=== PATIENT | male | born 1955 | race Caucasian/White ===

== ENCOUNTER 2022-07-16 09:26 | Outpatient (CLI) | payer MEDICARE, SELFPAY | END 2022-07-16 09:27 | disposition home or self-care (01) | PROVIDERS: PCP Family Medicine; Visit Provider Surgery | DX: K42.9 Umbilical hernia without obstruction or gangrene (principal); Z01.818 Encounter for other preprocedural examination | CPT/HCPCS: 36415; 86850; 86900; 86901 ==

== ENCOUNTER 2022-07-22 01:14 | Day surgery (SDC) | payer MEDICARE, SELFPAY ==
[2022-07-13 11:17] VITALS: BMI 28.9
--- NOTE | 2022-07-13 11:28 | PC.NURSE ---
PRE-OP INSTRUCTIONS, PLEASE READ CAREFULLY Report to the Outpatient Waiting Room, entrance under the green pavilion located off [facility], at time _0900_ on date _07/22/22_. Planned Procedure Time: _1200_. Time changes happen often and if your time is changed the preop area will call you the afternoon before. - You and your visitor will be asked to self-screen and do not enter if you have any COVID symptoms. - A mask is optional within the hospital at this time. Patients may have clear liquids (water, carbonated beverages, clear teas, apple juice) until 3 hours prior to surgery with a maximum of 20 ounces. - No food from midnight until time of surgery Take the following medications with a SIP of water the morning of surgery: _CARBIDOPA-LEVODOPA, ALBUTEROL INHALER IF NEEDED_ DO NOT STOP ANY OF YOUR OTHER PRESCRIPTION MEDICATIONS PRIOR TO SURGERY ?EXCEPT THE FOLLOWING Medications per DR. ZUNIGA - _STARTING 07/14/22 DECREASE ASPIRIN TO 81MG_ Please no make-up, nail welsh, hairspray, perfume, deodorant, or body powder the day of surgery. No jewelry (including any body piercings) or valuables the day of surgery, leave them at home. Please take a shower or bath the night before, or the morning of, surgery with an antibacterial soap. Wear comfortable, loose fitting clothing. - Jewelry must be removed prior to entering the operating room. Rings and piercings that are not removed may be cut off. - The hospital will not accept responsibility for valuables. - Please leave all valuables, including medications, at home the day of surgery. If you are going home after surgery, a licensed long haul truck driver must drive you home. - NO public transportation without another adult if you receive anesthesia. - We recommend that an adult stay with you for 24 hours following discharge. - We also recommend that you do not drive, make important decision, drink alcoholic beverages, or take any drugs that were not prescribed by your health care provider for at least 24 hours after your discharge time. Follow any additional instructions given to you from your surgeon. HIBICLENS SHOWER AM OF SURGERY If you or anyone in your household have experienced Covid symptoms in the past week, please notify your surgeon or the nurse liaison at the phone number below for possible testing. Telephone instructions given to _PATIENT_and asked if any additional questions and then verbalized understanding. Patient advised to call surgeon office or pre surgery nurse liaison [phone] if any additional questions.
[2022-07-22] VITALS (17 sets, daily range): BP systolic 125–156; BP diastolic 63–97; PULSE 58–78; RESP 9–20; TEMP 36.3–37.1; O2SAT 92–100; BMI 28.3
[2022-07-22] MEDS: LACTATED RINGERS 1,000 ML 30 ML IV CONT ×2 (10:35→14:04)
--- NOTE | 2022-07-22 10:48 | WPDANESEPPF ---
Anes - Initial Pre Proc Eval Procedure: Operation Date: 07/22/22 12:00 Proposed Procedures p Robotic Assisted Umbilical Hernia Repair with Mesh - Patti Ramires MD Date/Time: 07/22/22 10:48 Surgeon: Patti Ramires MD Pre Op Diagnosis: umbilical hernia Patient Data Age: 66 Gender: M Height: 1.73 m Weight: 86.36 kg Allergies Allergy/AdvReac Type Severity Reaction Status Date / Time ibuprofen Allergy Unknown FACIAL Verified 07/22/22 10:20 Swelling Home Medications Medication Instructions Recorded Confirmed Type carbidopa 25 mg-levodopa 100 mg 2 tablet PO QID 03/05/22 07/13/22 History tablet albuterol sulfate 90 mcg/actuation 2 puff inhalation Q4-6H PRN 07/05/22 07/13/22 Rx aerosol inhaler (ProAir HFA) shortness of breath or wheezing #6.7 grams fluticasone propionate 50 1 spray intranasal DAILY 07/05/22 07/13/22 History mcg/actuation nasal spray,suspension (Flonase Allergy Relief) aspirin 325 mg capsule 650 mg PO DAILY 07/13/22 07/13/22 History fluticasone furoate 200 1 inh inhalation HS 07/13/22 07/13/22 History mcg-vilanterol 25 mcg/dose inhalation powder (Breo Ellipta) Patient hx anesthesia problems: none Family hx anesthesia problems: none Results Review: All pre-operative results and documents have been reviewed as part of the pre-operative evaluation. [facility] Past Medical History Medical History BMI 28.0-28.9,adult BMI greater than 30 Mild intermittent asthma with status asthmaticus Mixed hyperlipidemia Parkinsons Screen for colon cancer Screening for prostate cancer Type 2 diabetes mellitus without complication Surgical History Surgical History H/O left inguinal hernia repair History of nasal polypectomy Family History Family History Father Cerebrovascular accident Malignant neoplasm of prostate Mother Cerebrovascular accident Sibling Cerebrovascular accident Acute myocardial infarction Other Family history of allergic disorder Hypertension Social History Social History Smoking status: Never smoker Second hand tobacco smoke exposure: No Alcohol intake: never Substance use: never Lack of Transportation: No Lack of Food: Never True Current Housing: I Have Housing Concerned About Future Housing: No Difficulty Paying Gas/Electric Bills: No Difficulty Paying for Meds: No Currently Unemployed: No Education: Bachelor's Degree Difficulty w/ Childcare or Family Care: No Living arrangements: with family Additional living arrangements comments: LIVES WITH SPOUSE (OBIE) & DAUGHTER ANN Occupation/Education: retired Spiritual care concerns: No Anes - Eval Final PreProcedure Day of Procedure 07/22/22 10:48 Patient weight: overweight Heart: regular rate and rhythm Lungs: clear to auscultation Airway: Mallampati scale class II Neurological: alert and oriented Last oral intake: >/= 8 hours ASA classification: III Emergent: no Anesthetic plan: proceed Anesthesia type and monitoring: general ETT and standard monitoring Results Review: All pre-operative results and documents have been reviewed as part of the pre-operative evaluation. Informed Consent: The patient's anesthetic plan and its attendant risks and benefits were discussed with the patient/family/POA. Questions were solicited and answers provided to the satisfaction of the patient/family/POA.
[2022-07-22] MEDS: ACETAMINOPHEN 500 MG TABLET 1000 MG PO (10:50)
--- NOTE | 2022-07-22 12:04 | WPDHPUPDATE1 ---
History and Physical Update Update Date/Time: 07/22/22 12:04 History and Physical has been reviewed, including an updated exam of the patient. There are NO changes in the patient's condition. Risks, benefits, and alternatives have been discussed and questions answered. Patient agrees to proceed with procedure.
[2022-07-22] MEDS: ceFAZolin 2 GM/D5W 50 ML 2 GM/50 ML BAG IVPB (12:10)
[2022-07-22] MEDS: BUPIVACAINE/EPINEPHRINE 0.5% 50 ML VIAL 30 ML INFILTRATE (12:53)
--- NOTE | 2022-07-22 14:19 | P.OP_ITS ---
Procedure Note - Detailed Date of Procedure 07/22/22 Pre-op Diagnosis umbilical hernia measuring 3 cm Post-op Diagnosis Same Procedure Performed Robotic assisted repair umbilical hernia with mesh Surgeon Patti Ramires MD Anesthesia General Indications 66 y/o M presenting c moderate sized symptomatic umbilical hernia Findings 3 cm umbilical hernia c incarcerated preperitoneal fat Description of Procedure The patient was taken the operating room placed in the supine position. After adequate induction of general anesthesia, the patient was prepped and draped in normal sterile fashion. A time-out was then done to verify the patient's identity as well as the procedure being performed. I began by making a 8 mm incision in the left upper quadrant. Through this, a Veress needle was placed into the peritoneal cavity and CO2 gas was insufflated. After adequate pneumoperitoneum was achieved, a 8 mm optiview trocar was placed through this incision. I then placed the laparoscope through this trocar site and under direct visualization I placed a 8 mm port in the left mid abdomen as well as an additional 8 mm port in the left lower abdomen. The robot was then docked to the 3 port sites. I then went to the robotic console. I began by identifying the hernia. A moderate-sized incarcerated umbilical hernia was noted. I created a preperitoneal flap approximately 6 cm lateral to the hernia. This f lap was carried widely superior and inferior to the defect. I then was able to reduce this hernia. The hernia was noted to contain a large amount of preperitoneal fat. Once reduced, I also reduced and dissected out the hernia sac. I then carried the flap distally past the hernia. I then closed the approximately 3 cm defect with 0 strata fix suture. I then placed a 15 x 10 cm Bard soft mesh into the abdominal cavity. The positional stitch was placed in the middle of the mesh and brought up centering the mesh over the defect. Once this was done, I used 2 O vicryl suture in the 4 cardinal directions in interrupted fashion to suture the mesh to the abdominal wall. Once the mesh was sutured in, I was happy with our tension-free repair. The mesh was noted to have good overlap of the defect. I then closed the flap with 2 0 V lock. At this point, the robot was undocked and all ports were removed. All port sites were then closed with 4 O Monocryl subcuticular suture. The patient tolerated the procedure well, is extubated in the operating room postoperative, and will be transferred to the recovery room in stable condition. Implants 15 x 10 cm Bard soft mesh Estimated Blood Loss 10 Drains No Packing No Pathology None sent Complications No immediate complications Condition Stable Disposition PACU [facility] Billing Surgery - Charge Forward: Surgery Billing
[2022-07-22] MEDS: fentaNYL CITRATE INJ (*CRX) 100 MCG/2 ML VIAL 25 MCG IV PUSH ×4 (14:28→14:52)
[2022-07-22] MEDS: HYDROmorphone HCL INJ (*CRX) 1 MG/ML SYR 0.25 MG IV PUSH ×2 (15:06→15:15)
[2022-07-22] MEDS: oxyCODONE HCL (*CRX) 5 MG TAB IR PO (15:35)
--- NOTE | 2022-07-22 16:24 | SUR.PHASEII ---
1620 - pt states that he is not able to go home . c/o abdominal pain but remains drowsy and sleeping in intervals. VSS. Dr. Ramires called and aware of concerns. pt to be admitted for pain control.
[2022-07-22] MEDS: LACTATED RINGERS 1,000 ML 100 ML IV CONT (17:16)
--- NOTE | 2022-07-22 17:21 | ADMGEN ---
This patient, Tico Rondon, was admitted to [facility] Surg Room 312-01. Patient/family oriented to hospital policies and general routines including ID bracelet, bed and alarms, visiting hours, pain management, procedures, bathroom and other care routines, personal items, smoking policy, room service/diet, and visiting hours. Information on how to activate the Rapid Response Team has been discussed. Patient/Family are encouraged to report perceived risks to care and to ask questions if they do not understand what they are told or what they should do.
[2022-07-22] MEDS: HYDROcodone/acetaminophen (*CRX) 5-325 MG TABLET 2 TAB PO (17:30)
[2022-07-22] MEDS: CARBIDOPA/LEVODOPA 25/100 MG TABLET 2 TABLET PO ×2 (17:31→20:09)
[2022-07-22] MEDS: MORPHINE SULFATE (*CRX) 4 MG/ML INJ IV PUSH (20:21)
--- NOTE | 2022-07-22 20:30 | PC.NURSE ---
pt requesting asthma meds be restarted.
[2022-07-22] MEDS: FLUTICASONE/SALMETEROL 230-21 MCG INHALER 1 PUFF 2 PUFF INHALATION (22:15)
[2022-07-22] MEDS: ALBUTEROL SULFATE (*SP) AEROSOL 1 PUFF 2 PUFF INHALATION (22:18)
[2022-07-23] MEDS: HYDROcodone/acetaminophen (*CRX) 5-325 MG TABLET 2 TAB PO ×2 (01:16→05:36)
--- NOTE | 2022-07-23 01:20 | PC.NURSE ---
bladder scanned pt d/t no void this shift, 578 ml, pt up to restroom x sba moderate unmeasured void. continue to monitor for urinary retention post surgery.
[2022-07-23 02:14] VITALS: BP 112/78; PULSE 73; RESP 12; TEMP 36.3; O2SAT 95
[2022-07-23 06:09] VITALS: BP 133/70; PULSE 70; RESP 13; TEMP 36.4; O2SAT 96
[2022-07-23 06:44] LABS: Hematocrit 43.2 % (42.0-52.0); Hemoglobin 14.3 g/dL (14.0-18.0); Mean Corpuscular HGB Conc 33.1 g/dl (32-36); Mean Corpuscular Hemoglobin 31.1 pg (26-34); Mean Corpuscular Volume 93.9 fl (80-100); Mean Platelet Volume 10.5 fl (7.4-10.4); Platelet Count Result 202 k/mm3 (150-375); Red Cell Distribution Width 13.2 % (11.5-14.5); White Blood Count 11.9 K/mm3 (4.5-10.0)
[2022-07-23 06:46] LABS: Anion Gap 6 mmol/L (8-16); Blood Urea Nitrogen 16 mg/dL (9-20); Calcium 8.9 mg/dL (8.4-10.2); Carbon Dioxide 28 mmol/L (22-30); Chloride 103 mmol/L (98-107); Estimated CRCL calculation 75 ml/min; Estimated Glomerular Filt Rate > 60; Glucose 115 mg/dL (65-110); Potassium 4.3 mmol/L (3.4-5.0); Sodium 137 mmol/L (137-145)
[2022-07-23 07:51] VITALS: O2SAT 96
[2022-07-23] MEDS: FLUTICASONE/SALMETEROL 230-21 MCG INHALER 1 PUFF 2 PUFF INHALATION (07:51)
[2022-07-23] MEDS: CARBIDOPA/LEVODOPA 25/100 MG TABLET 2 TABLET PO (08:18)
[2022-07-23] MEDS: ENOXAPARIN 40 MG/0.4 ML SYRINGE SUB-Q (08:18)
[2022-07-23] MEDS: FLUTICASONE PROPIONATE 0.05% NA SPR 16 GM BTL (*BKC) 2 SPRAY NASAL (08:19)
[2022-07-23] MEDS: HYDROcodone/acetaminophen (*CRX) 5-325 MG TABLET 1 TAB PO (09:34)
[2022-07-23 10:21] VITALS: BP 150/83; PULSE 63; RESP 13; TEMP 36; O2SAT 99
== END 2022-07-23 11:30 | disposition home or self-care (01) ==
LOC: ANHSURGERY 14:19 → ANH3MEDSUR 17:02
PROVIDERS: PCP Family Medicine; Visit Provider Surgery
PROC: (CPT 49594; principal; 2022-07-22 12:00)
DX: K42.0 Umbilical hernia with obstruction, without gangrene (principal); J45.22 Mild intermittent asthma with status asthmaticus; E11.9 Type 2 diabetes mellitus without complications; G20 Parkinson's disease; E78.2 Mixed hyperlipidemia; Z79.51 Long term (current) use of inhaled steroids; Z79.82 Long term (current) use of aspirin
CPT/HCPCS: 49594; S2900; 36415; 80048; 85027; 86850; 86900; 86901; 94640; A9270; C1781; J0690; J1100; J1170; J1650; J2250; J2270; J2405; J2704; J2710; J3010; J7120

== ENCOUNTER 2022-07-29 14:30 | Outpatient (CLI) | payer MEDICARE, SELFPAY ==
--- NOTE | ~2022-07-29 | US_ITS ---
EXAMINATION: US venous doppler [facility] DATE: 07/29/2022 15:04 INDICATION: Bilateral lower limb swelling TECHNIQUE: Rowan scale images without and with compression and Doppler images of the bilateral lower e xtremity veins were obtained. COMPARISON: None FINDINGS: The right common femoral vein, profunda femoral vein, femoral vein, popliteal vein, peroneal trunk, p osterior tibial veins, and greater saphenous vein are patent. The left common femoral vein, profunda femoral vein, femoral vein, popliteal vein, peroneal trunk, po sterior tibial veins, and greater saphenous vein are patent. IMPRESSION: 1. Patent bilateral lower extremity veins. No evidence of deep venous thrombosis. Reviewed, dictated and finalized at location F. IMPRESSION: 1. Patent bilateral lower extremity veins. No evidence of deep venous thrombosi s.
== END 2022-07-29 14:31 | disposition home or self-care (01) ==
PROVIDERS: PCP Family Medicine; Visit Provider Surgery
DX: R60.0 Localized edema (principal)
CPT/HCPCS: 93970

== ENCOUNTER 2022-10-18 07:24 | Outpatient (CLI) | payer MEDICARE, SELFPAY ==
--- NOTE | 2022-10-18 07:39 | ECHO_ITS ---
Patient Info Name: Tico Rondon Age: 67 years : 1955 Gender: Male Ht: 68 in Wt: 200 lbs BSA: 2.11 m2 HR: 68 bpm BP: 149 / 86 mmHg Technical Quality: Good Exam Date: 10/18/2022 7:45 AM Exam Location: [facility] Pulmonary Patient Status: Outpatient Admit Date: 10/18/2022 Staff Ordering Physician: Andreas Flores NP Septic Technician: Chiara Zuluaga RDCS Attending Provider: Andreas Flores NP Referring Physician: Mark ROY; Exam Type: CA echo doppler color flow Study Info Indications R60.0 - Localized edema Complete two-dimensional, color flow and Doppler transthoracic echocardiogram is performed. Summary 1. Complete two-dimensional, color flow and Doppler transthoracic echocardiogram is performed. 2. Left ventricular chamber dimension is normal. 3. Left ventricular systolic function is normal, estimated at 55-60%. 4. The left ventricular diastolic function is abnormal. 5. E/e' 10 is mildly elevated. 6. Left atrial chamber dimension is severely enlarged. 7. There is mild aortic valve sclerosis. 8. There is mild mitral valve regurgitation. 9. There is trace tricuspid valve regurgitation. 10. Moderate pulmonary hypertension, estimated pulmonary arterial systolic pressure is 50 mmHg. 11. Dilated inferior vena cava with >50% collapse upon inspiration consistent with elevated right atrial pressure, 10 mmHg. Left Ventricle E/e' 10 is mildly elevated. Left ventricular chamber dimension is normal. Left ventricular systolic function is normal, estimated at 55-60%. The left ventricular diastolic function is abnormal. Right Ventricle Right ventricular systolic function is normal and with normal TAPSE 2.8 cm. Right ventricular chamber dimension is normal. Left Atria Left atrial chamber dimension is severely enlarged. Right Atria Right atrial chamber dimension is normal. Aortic Valve The aortic valve is trileaflet. There is mild aortic valve sclerosis. There is no aortic valve stenosis. There is no aortic valve regurgitation. Pulmonic Valve There is no pulmonic regurgitation. Mitral Valve There is no mitral valve stenosis. There is mild mitral valve regurgitation. Tricuspid Valve There is trace tricuspid valve regurgitation. Moderate pulmonary hypertension, estimated pulmonary arterial systolic pressure is 50 mmHg. Pericardium/Pleural There is no pericardial effusion. Inferior Vena Cava Dilated inferior vena cava with >50% collapse upon inspiration consistent with elevated right atrial pressure, 10 mmHg. Aorta The aortic root size at the sinus of Valsalva is normal. Left Ventricular Outflow Tract Name Value Normal LVOT 2D LVOT Diameter 2.0 cm LVOT Doppler LVOT Peak Gradient 5 mmHg LVOT Mean Gradient 3 mmHg LVOT VTI 29 cm LVOT VTI/AV VTI Ratio 1.1 LVOT Stroke Volume 89 ml LVOT CO 6.0 l/min LVOT CI 2.8 l/min/m2 Pulmonic Valve Name Value Normal
== END 2022-10-18 07:25 | disposition home or self-care (01) ==
PROVIDERS: PCP Family Medicine; Visit Provider Nurse Practitioner Family
DX: R60.0 Localized edema (principal); R06.02 Shortness of breath; R79.89 Other specified abnormal findings of blood chemistry; I08.3 Combined rheumatic disorders of mitral, aortic and tricuspid valves
CPT/HCPCS: 93306

== ENCOUNTER 2022-12-08 18:16 | Emergency (ER) | payer MEDICARE, SELFPAY ==
[2022-12-08 18:25] VITALS: BP 126/76; PULSE 88; RESP 16; TEMP 37.2; O2SAT 99
--- NOTE | 2022-12-08 18:28 | ED.WOUNDLAC ---
HPI - Wound/Laceration General Chief Complaint: Wound/Laceration Stated Complaint: Wounds Thighs/Legs/Feet Time Seen by Provider: 12/08/22 18:28 Source: patient, RN notes reviewed and old records reviewed Mode of arrival: ambulatory Limitations: no limitations History of Present Illness HPI narrative: 67-year-old male with history of Parkinson's and diabetes presents for 1 month of bilateral increasing swelling, redness, blisters and open wounds that have been draining. 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 Patient states that his and daughter made him come because of wounds just keeps getting worse. Has not followed up with primary care provider Onset (ago): month(s) (1) Related Data Home Medications Medication Instructions Recorded Confirmed carbidopa 25 mg-levodopa 100 mg 2 tablet PO QID 03/05/22 12/08/22 tablet fluticasone propionate 50 1 spray intranasal DAILY 07/05/22 12/08/22 mcg/actuation nasal spray,suspension (Flonase Allergy Relief) fluticasone furoate 200 1 inh inhalation HS 07/13/22 12/08/22 mcg-vilanterol 25 mcg/dose inhalation powder (Breo Ellipta) Allergies Allergy/AdvReac Type Severity Reaction Status Date / Time ibuprofen Allergy Unknown FACIAL Verified 12/08/22 18:25 Swelling Review of Systems Review of Systems: All systems reviewed & are unremarkable except as noted in HPI and below Constitutional: Constitutional: Reports no additional constitutional complaints Eyes: Eyes: Reports no additional eye complaints ENT: Reports system reviewed and no additional complaints, except as documented Cardiovascular: Cardiovascular: Reports no additional cardiovascular complaints, Denies chest pain and Denies dyspnea Respiratory: Respiratory: Reports no additional respiratory complaints, Denies chest congestion, Denies cough and Denies dyspnea Gastrointestinal: Gastrointestinal: Reports no additional gastrointestinal complaints, Denies abdominal pain, Denies nausea and Denies vomiting Musculoskeletal: Musculoskeletal: Reports as per HPI Integumentary/Breasts: Skin/Breast: Reports as per HPI Neurologic: Reports system reviewed and no additional complaints, except as documented Psychiatric: Psychiatric: Reports no additional psychiatric complaints Allergic/Immunologic: Allergic/Immunologic: Reports no additional allergic/immunologic complaints PMFSH Past Medical History Medical History BMI 28.0-28.9,adult BMI 29.0-29.9,adult BMI greater than 30 Mild intermittent asthma with status asthmaticus Mixed hyperlipidemia Parkinsons Screen for colon cancer Screening for prostate cancer Type 2 diabetes mellitus without complication Surgical History Surgical History H/O left inguinal hernia repair History of nasal polypectomy History of umbilical hernia repair 07/22/2022 - Robotic assisted repair umbilical hernia with mesh Family History Family History Father Cerebrovascular accident Malignant neoplasm of prostate Mother Cerebrovascular accident Sibling Cerebrovascular accident Acute myocardial infarction Other Family history of allergic disorder Hypertension Social History Social History Smoking status: Never smoker Second hand tobacco smoke exposure: No Alcohol intake: never Substance use: never Lack of Transportation: No Lack of Food: Never True Current Housing: I Have Housing Concerned About Future Housing: No Difficulty Paying Gas/Electric Bills: No Difficulty Paying for Meds: No Currently Unemployed: No Education: Bachelor's Degree Difficulty w/ Childcare or Family Care: No Living arrangements: with family Additional living arrangements comments: LIVES WITH SPOUSE (OBIE) & DELANEY
[2022-12-08 18:39] LABS: Glucose Point of Care 117 mg/dl (65-105)
== END 2022-12-08 18:40 | disposition short-term general hospital (02) ==
LOC: EXPCOLL 18:20
PROVIDERS: Emergency Provider Nurse Practitioner; PCP Family Medicine
DX: S81.802A Unspecified open wound, left lower leg, initial encounter (principal); S81.801A Unspecified open wound, right lower leg, initial encounter; X58.XXXA Exposure to other specified factors, initial encounter; E78.2 Mixed hyperlipidemia; J45.909 Unspecified asthma, uncomplicated; G20.A1 Parkinson's disease without dyskinesia, without mention of fluctuations; E11.9 Type 2 diabetes mellitus without complications
CPT/HCPCS: 82948; 99212; G0463

== ENCOUNTER 2022-12-08 18:59 | Inpatient (IN) | payer MEDICARE, SELFPAY ==
--- NOTE | ~2022-12-08 | US_ITS ---
EXAMINATION:US venous doppler [facility] INDICATION:Cellulitis TECHNIQUE: Multiple grayscale, color flow and Doppler images of the right and left lower extremity de ep venous systems were obtained and reviewed. COMPARISON:No prior studies for comparison. FINDINGS: The common femoral, superficial femoral and popliteal veins demonstrate normal respiratory variation, augmentation and compressibility. Color flow is also seen within the posterior tibial, pe roneal, greater saphenous and profunda veins. IMPRESSION: 1: No lower extremity deep venous thrombosis. Reviewed, dictated and finalized at location A.
[2022-12-08 19:21] VITALS: BP 126/87; PULSE 80; RESP 14; TEMP 36.4; O2SAT 100
[2022-12-08 19:41] LABS: Basophils Absolute Auto 0.1 K/mm3 (0.0-0.1); Eosinophils Absolute Auto 0.9 K/mm3 (0-0.3); Eosinophils Percent Auto 9.5 % (0-4.4); Hematocrit 38.1 % (42.0-52.0); Hemoglobin 12.1 g/dL (14.0-18.0); Immature Granulocyte Absolute 0.03 K/mm3 (0.00-0.031); Immature Granulocyte Percent A 0.3 % (0-0.5); Immature Platelet Fraction Pct 3.6 % (0.9-11.2); Lymphocytes Percent Auto 11.8 % (18.3-44.2); Mean Corpuscular HGB Conc 31.8 g/dl (32-36); Mean Corpuscular Volume 97.7 fl (80-100); Monocytes Percent Auto 10.8 % (2.6-8.5); Neutrophils Absolute Auto 6.2 K/mm3 (1.3-6.7); Neutrophils Percent Auto 66.6 % (45.5-73.1); Red Cell Distribution Width 13.4 % (11.5-14.5); White Blood Count 9.3 K/mm3 (4.5-10.0)
[2022-12-08 19:50] LABS: Anion Gap 11 mmol/L (8-16); Blood Urea Nitrogen 45 mg/dL (9-20); Calcium 8.8 mg/dL (8.4-10.2); Carbon Dioxide 25 mmol/L (22-30); Chloride 103 mmol/L (98-107); Estimated CRCL calculation 37 ml/min; Estimated Glomerular Filt Rate 35; Glucose 102 mg/dL (65-110); Potassium 4.5 mmol/L (3.4-5.0); Sodium 139 mmol/L (137-145)
--- NOTE | 2022-12-09 00:55 | ED.GENADULT ---
HPI - General Adult General Chief complaint: Extremity Injury, Lower Stated complaint: ?cellulitis Time Seen by Provider: 12/08/22 23:53 Source: patient Mode of arrival: ambulatory Limitations: no limitations History of Present Illness HPI narrative: This is a 67-year-old male who presents to the ED with chief complaint bilateral lower extremity edema, erythema and pain. He has been following with Dr. Becker and ingesting furosemide and spironolactone for the lower leg swelling which is chronic. However he was sent in from urgent care for concerns of cellulitis with open wounds that are draining to both legs. Denies fevers, chills, nausea, vomiting. He does state that the legs are painful in certain areas. Reports blisters to the legs as well. Related Data Home Medications Medication Instructions Recorded Confirmed carbidopa 25 mg-levodopa 100 mg 2 tablet PO QID 03/05/22 12/09/22 tablet fluticasone propionate 50 1 spray intranasal QHS 07/05/22 12/09/22 mcg/actuation nasal spray,suspension (Flonase Allergy Relief) fluticasone furoate 200 1 inh inhalation HS 07/13/22 12/09/22 mcg-vilanterol 25 mcg/dose inhalation powder (Breo Ellipta) Allergies Allergy/AdvReac Type Severity Reaction Status Date / Time ibuprofen Allergy Unknown FACIAL Verified 12/08/22 18:25 Swelling Review of Systems Review of Systems: CONSTITUTIONAL: Denies fever, chills, or sweats. EYES: Denies visual changes, redness, or discharge. ENT: Denies rhinorrhea, congestion, sore throat, or otalgia. CARDIOVASCULAR: Denies chest pain, palpitations, or edema. RESPIRATORY: Denies cough or dyspnea. GASTROINTESTINAL: Denies abdominal pain, nausea, vomiting, or diarrhea. GENITOURINARY: Denies dysuria or hematuria. SKIN: Denies rash or itching. MUSCULOSKELETAL: Denies back pain, joint pain, or myalgia. NEUROLOGIC: Denies headache, numbness, dizziness, or weakness. PSYCHIATRIC: Denies anxiety or depression. [facility] Past Medical History Medical History BMI 28.0-28.9,adult BMI 29.0-29.9,adult BMI greater than 30 Mild intermittent asthma with status asthmaticus Mixed hyperlipidemia Parkinsons Screen for colon cancer Screening for prostate cancer Type 2 diabetes mellitus without complication Surgical History Surgical History H/O left inguinal hernia repair History of nasal polypectomy History of umbilical hernia repair 07/22/2022 - Robotic assisted repair umbilical hernia with mesh Family History Family History Father Cerebrovascular accident Malignant neoplasm of prostate Mother Cerebrovascular accident Sibling Cerebrovascular accident Acute myocardial infarction Other Family history of allergic disorder Hypertension Social History Social History Smoking status: Never smoker Second hand tobacco smoke exposure: No Alcohol intake: never Substance use: never Substance use type: does not use Lack of Transportation: No Lack of Food: Never True Current Housing: I Have Housing Concerned About Future Housing: No Difficulty Paying Gas/Electric Bills: No Difficulty Paying for Meds: No Currently Unemployed: No Education: Associate Degree Difficulty w/ Childcare or Family Care: No Living arrangements: with family Additional living arrangements comments: LIVES WITH SPOUSE (OBIE) & DAUGHTER ANN Occupation/Education: retired Spiritual care concerns: No Exam Narrative: GENERAL: Well-appearing, well-nourished, and in no acute distress. HEAD: Normocephalic, atraumatic. EYES: PERRLA and EOMI. ENT: Nares clear, no rhinorrhea or epistaxis. Mucous membranes moist. Oropharynx without tonsillar hypertrophy exudate or other lesions. NECK: Supple. No adenopathy or masses.
[2022-12-09] MEDS: CARBIDOPA/LEVODOPA 12.5/50 MG 1 TABLET, CARBIDOPA/LEVODOPA 25/100 MG 1 TABLET 2 TABLET PO (01:03)
[2022-12-09 01:20] LABS: Appearance Urine Clear (Clear); Bilirubin Urine Negative (Negative); Blood Urine Negative (Negative); Color Urine Yellow (Yellow); Glucose Urine UA Negative (Negative); Ketones Urine Negative (Negative); Leukocyte Esterase Ur Negative LEU/UL (Negative); Nitrate Urine Negative (Negative); Protein Urine Negative (Negative); Urobilinogen Urine 0.2 mg/dL (<2.0); pH Urine 5.5 (5.0-9.0)
[2022-12-09 01:31] LABS: Add Urine Microscopic? NO
[2022-12-09] MEDS: ceFAZolin 1 GM/NS 50 ML 1 GM/50 ML BAG IVPB ×4 (02:02→22:22)
[2022-12-09 02:23] LABS: CRP 0.6 mg/dL (<1.0)
[2022-12-09 02:29] VITALS: BP 143/80; PULSE 62; RESP 12; O2SAT 96
[2022-12-09 02:55] VITALS: BP 136/84; PULSE 75; RESP 20; TEMP 36.8; O2SAT 98
--- NOTE | 2022-12-09 03:33 | ADMGEN ---
This patient, Tico Rondon, was admitted to Medical Room 347-. Patient/family oriented to hospital policies and general routines including ID bracelet, bed and alarms, visiting hours, pain management, procedures, bathroom and other care routines, personal items, smoking policy, room service/diet, and visiting hours. Information on how to activate the Rapid Response Team has been discussed. Patient/Family are encouraged to report perceived risks to care and to ask questions if they do not understand what they are told or what they should do.
[2022-12-09 03:34] VITALS: BMI 29.7
[2022-12-09 05:39] VITALS: BP 108/77; PULSE 64; RESP 20; TEMP 36.9; O2SAT 96
--- NOTE | 2022-12-09 08:36 | PM.IMHP ---
H&P: HPI History of Present Illness Date/Time: 12/09/22 08:36 Chief Complaint: bilateral lower extremity swelling Narrative: This is a 67-year-old male with past medical history of hyperlipidemia, Parkinson's, asthma, and type 2 diabetes. He presents to the ER with complaints of bilateral lower extremity swelling with pain and warmth. Lab work was largely unremarkable, no white count. BUN and creatinine are elevated. He states that he has been having bilateral lower swelling since his hernia repair over the summer. He was referred to Dr. Becker with Cardiology who he saw in October. At that visit he was started on spironolactone and his Lasix was increased from 20 mg to 40 mg daily. The patient states that last week he when he refilled his Lasix the prescription was only 20 mg and he thinks this was decreased because of his kidney function. His bilateral lower extremities have scattered open lesions that he says are from blisters. The areas on his left lateral and posterior calf are the most concerning. The left lateral calf lesion wound bed is red with some yellow discoloration present, surrounding areas are red but blanchable.. He says a blister recently opened there couple of days ago. The posterior left calf wound that is dry and red. He complains of bilateral calf pain. He feels that his lower extremity swelling is about baseline today. He does have +2-3 pitting edema in his feet and +1-2 edema in his legs. Besides concerns for skin infection he reports morning dizziness at baseline that he relates to position changes. Dizziness improves with slow movements. He also has generalized tremors related to his Parkinson's disease and he has issues with constipation,as well as intermittent nocturnal urinary incontinence. He is being admitted in the setting of cellulitis with IV antibiotics and adjustments of medications to control bilateral lower extremity swelling. Review of Systems Review of Systems: All systems reviewed & are unremarkable except as noted in HPI and below PMFSH Past Medical History Medical History BMI 28.0-28.9,adult BMI 29.0-29.9,adult BMI greater than 30 Mild intermittent asthma with status asthmaticus Mixed hyperlipidemia Parkinsons Screen for colon cancer Screening for prostate cancer Type 2 diabetes mellitus without complication Surgical History Surgical History H/O left inguinal hernia repair History of nasal polypectomy History of umbilical hernia repair 07/22/2022 - Robotic assisted repair umbilical hernia with mesh Family History Family History Father Cerebrovascular accident Malignant neoplasm of prostate Mother Cerebrovascular accident Sibling Cerebrovascular accident Acute myocardial infarction Other Family history of allergic disorder Hypertension Social History Social History Smoking status: Never smoker Second hand tobacco smoke exposure: No Alcohol intake: never Substance use: never Substance use type: does not use Lack of Transportation: No Lack of Food: Never True Current Housing: I Have Housing Concerned About Future Housing: No Difficulty Paying Gas/Electric Bills: No Difficulty Paying for Meds: No Currently Unemployed: No Education: Associate Degree Difficulty w/ Childcare or Family Care: No Living arrangements: with family Additional living arrangements comments: LIVES WITH SPOUSE (OBIE) & DAUGHTER ANN Occupation/Education: retired Spiritual care concerns: No Comments Robbin Rondon, , is surrogate decision maker Meds Home Medications and Allergies Home Medications Medication Instructions Recorded Confirmed Type carbidopa 25 mg-levodopa 100 mg 2 tablet PO QID 03/05/22 12/09/22 History tablet
[2022-12-09] MEDS: CARBIDOPA/LEVODOPA 25/100 MG TABLET 2 TABLET PO ×4 (08:39→22:23)
[2022-12-09] MEDS: SPIRONOLACTONE 25 MG TABLET PO (12:00)
[2022-12-09] MEDS: SILVERGEL (ELTA) 45 ML 1 APPLIC TOPICAL (12:00)
[2022-12-09] MEDS: FUROSEMIDE 40 MG TABLET PO (12:00)
[2022-12-09 14:00] VITALS: BP 110/69; PULSE 66; RESP 20; TEMP 37; O2SAT 98
[2022-12-09] MEDS: ENOXAPARIN 40 MG/0.4 ML SYRINGE SUB-Q (17:34)
[2022-12-09 22:00] VITALS: BP 127/74; PULSE 60; PULSE 63; RESP 18; TEMP 35.9; O2SAT 99
[2022-12-09] MEDS: FLUTICASONE/SALMETEROL 230-21 MCG INHALER 1 PUFF 2 PUFF INHALATION (22:00)
[2022-12-09] MEDS: FLUTICASONE PROPIONATE 0.05% NA SPR 16 GM BTL (*BKC) 1 SPRAY NASAL (22:25)
[2022-12-09] MEDS: ALBUTEROL SULFATE (*SP) AEROSOL 1 PUFF 2 PUFF INHALATION (22:31)
--- NOTE | 2022-12-09 23:03 | PCRCNOTE ---
Advair inhaler given late due to not being aware that pt had a scheduled inhaler tx
[2022-12-10] MEDS: ceFAZolin 1 GM/NS 50 ML 1 GM/50 ML BAG IVPB ×3 (05:51→21:22)
[2022-12-10 05:54] LABS: Basophils Absolute Auto 0.1 K/mm3 (0.0-0.1); Basophils Percent Auto 1.2 % (0.2-1.2); Eosinophils Absolute Auto 0.5 K/mm3 (0-0.3); Eosinophils Percent Auto 7.8 % (0-4.4); Hematocrit 35.2 % (42.0-52.0); Hemoglobin 11.3 g/dL (14.0-18.0); Immature Granulocyte Absolute 0.02 K/mm3 (0.00-0.031); Immature Granulocyte Percent A 0.3 % (0-0.5); Lymphocytes Absolute Auto 1.29 K/mm3 (0.9-3.2); Lymphocytes Percent Auto 19.4 % (18.3-44.2); Mean Corpuscular HGB Conc 32.1 g/dl (32-36); Mean Corpuscular Hemoglobin 30.7 pg (26-34); Mean Corpuscular Volume 95.7 fl (80-100); Mean Platelet Volume 10.1 fl (7.4-10.4); Monocytes Absolute Auto 0.8 K/mm3 (0.1-0.6); Monocytes Percent Auto 11.3 % (2.6-8.5); Platelet Count Result 184 k/mm3 (150-375); Red Blood Count 3.68 M/mm3 (4.6-6.20); Red Cell Distribution Width 13.2 % (11.5-14.5); White Blood Count 6.7 K/mm3 (4.5-10.0)
[2022-12-10] MEDS: CARBIDOPA/LEVODOPA 25/100 MG TABLET 2 TABLET PO ×4 (05:54→21:21)
[2022-12-10 06:00] VITALS: BP 126/68; PULSE 56; RESP 18; TEMP 35.8; O2SAT 98
[2022-12-10 06:07] LABS: Alanine Aminotransferase 7 U/L (6-50); Albumin Level 3.8 g/dL (3.5-5.1); Alkaline Phosphatase 66 U/L (38-126); Anion Gap 7 mmol/L (8-16); Aspartate Amino Transferase 18 U/L (17-59); Bilirubin,Total 0.6 mg/dL (0.2-1.3); Blood Urea Nitrogen 38 mg/dL (9-20); Calcium 8.8 mg/dL (8.4-10.2); Carbon Dioxide 25 mmol/L (22-30); Chloride 106 mmol/L (98-107); Estimated CRCL calculation 31 ml/min; Estimated Glomerular Filt Rate 33; Glucose 100 mg/dL (65-110); Potassium 4.1 mmol/L (3.4-5.0); Sodium 138 mmol/L (137-145)
[2022-12-10 06:12] LABS: NT Pro B Type Natriuretic Pept 2030 pg/mL (19.9-100)
[2022-12-10] MEDS: ACETAMINOPHEN 325 MG TABLET 650 MG PO (06:29)
[2022-12-10 07:28] VITALS: PULSE 55; RESP 18
[2022-12-10] MEDS: FLUTICASONE/SALMETEROL 230-21 MCG INHALER 1 PUFF 2 PUFF INHALATION ×2 (07:28→22:13)
[2022-12-10] MEDS: ENOXAPARIN 40 MG/0.4 ML SYRINGE SUB-Q (08:21)
[2022-12-10] MEDS: FUROSEMIDE 40 MG TABLET PO (08:21)
[2022-12-10] MEDS: SPIRONOLACTONE 25 MG TABLET PO (08:21)
[2022-12-10] MEDS: SILVERGEL (ELTA) 45 ML 1 APPLIC TOPICAL (08:22)
[2022-12-10 14:48] VITALS: BP 124/60; PULSE 56; RESP 16; TEMP 36.8; O2SAT 97
--- NOTE | 2022-12-10 16:25 | PM.IMPN ---
Progress Note: A&P Assessment and Plan (1) Cellulitis: Code(s): L03.90 - Cellulitis, unspecified Status: Acute Assessment and Plan: BLE edema, warmth, and erythema wound consult,. rec's appreciated chronic venous insufficiency-elevate legs when resting WBC is normal however with pain and erythema present, started on IV Cefazolin Afebrile. Monitor VS Q 8 hours Reports bilateral lower extremity calf pain. DVT should be ruled out. Venous dopplers ordered. DVT negative (2) Lower extremity edema: Code(s): R60.0 - Localized edema Status: Acute Assessment and Plan: Suspect chronic venous stasis see above (3) Diastolic dysfunction: Code(s): I51.89 - Other ill-defined heart diseases Status: Acute Assessment and Plan: Follows with Dr Becker Seen on 11/09 and his Lasix was increased to 40 mg and added spironolactone. Per patient his Lasix dose was only 20 mg when he filled his prescription so he's been taking 20 mg daily. I reviewed his pharmacy refills and it appears that his prescription was also for 20 mg tablets daily. I'm thinking he was supposed to remain on the Lasix 40 mg daily dosing. ECHO from 09/2022 Summary ? 1. Complete two-dimensional, color flow and Doppler transthoracic echocardiogram is performed. ? 2. Left ventricular chamber dimension is normal. ? 3. Left ventricular systolic function is normal, estimated at 55-60%. ? 4. The left ventricular diastolic function is abnormal. ? 5. E/e' 10 is mildly elevated. ? 6. Left atrial chamber dimension is severely enlarged. ? 7. There is mild aortic valve sclerosis. ? 8. There is mild mitral valve regurgitation. ? 9. There is trace tricuspid valve regurgitation. ? 10. Moderate pulmonary hypertension, estimated pulmonary arterial systolic pressure is 50 mmHg. ? 11. Dilated inferior vena cava with >50% collapse upon inspiration consistent with elevated right atrial pressure, 10 mmHg. (4) Function kidney decreased: Code(s): N28.9 - Disorder of kidney and ureter, unspecified Status: Acute Assessment and Plan: Chart review does not mention CKD in his history. Cr on admission is 1.9--->2.00 today Appears his Cr 10/ was 1.94, so it remains stable Holding diuretics Repeat BMP in the am (5) Parkinsons: Code(s): G20 - Parkinson's disease Status: Acute Assessment and Plan: Stable. Follows with [facility] neurology. 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 Monitor glucose on BMP. Fasting sugar this am was 102. Plan Feeding:DM diet Analgesia:Tylenol Thromboembolic prophylaxis: Lovenox Ulcer prophylaxis: na Glycemic control: na, monitor BMP glucose Bowel regimen: prn miralax Lines: PIV Antibiotics: cefazolin 1 gram Q 8 hours Disposition: Home Subjective Date/time seen: 12/10/22 16:25 Interval history: This is a 67-year-old male with past medical history of hyperlipidemia, Parkinson's, asthma, and type 2 diabetes.? He presents to the ER with complaints of bilateral lower extremity swelling with pain and warmth.? Lab work was largely unremarkable, no white count.? BUN and creatinine are elevated.? He states that he has been having bilateral lower swelling since his hernia repair over the summer.? He was referred to Dr. Becker with Cardiology who he saw in October.? At that visit he was started on spironolactone and his Lasix was increased from 20 mg to 40 mg daily.? The patient states that last week he when he refilled his Lasix the
[2022-12-10 20:22] VITALS: BP 139/82; PULSE 60; RESP 18; TEMP 36.4; O2SAT 100
[2022-12-10] MEDS: FLUTICASONE PROPIONATE 0.05% NA SPR 16 GM BTL (*BKC) 1 SPRAY NASAL (21:22)
[2022-12-10] MEDS: ALBUTEROL SULFATE (*SP) AEROSOL 1 PUFF 2 PUFF INHALATION (22:15)
[2022-12-11 04:05] VITALS: BP 138/78; PULSE 64; RESP 18; TEMP 36.5; O2SAT 100
[2022-12-11] MEDS: ceFAZolin 1 GM/NS 50 ML 1 GM/50 ML BAG IVPB ×2 (06:05→13:05)
[2022-12-11 06:20] LABS: Basophils Absolute Auto 0.1 K/mm3 (0.0-0.1); Basophils Percent Auto 1.4 % (0.2-1.2); Eosinophils Absolute Auto 0.6 K/mm3 (0-0.3); Eosinophils Percent Auto 8.7 % (0-4.4); Hematocrit 37.7 % (42.0-52.0); Immature Granulocyte Absolute 0.01 K/mm3 (0.00-0.031); Immature Granulocyte Percent A 0.2 % (0-0.5); Lymphocytes Absolute Auto 1.17 K/mm3 (0.9-3.2); Lymphocytes Percent Auto 18.2 % (18.3-44.2); Mean Corpuscular HGB Conc 31.8 g/dl (32-36); Mean Corpuscular Hemoglobin 30.5 pg (26-34); Mean Corpuscular Volume 95.9 fl (80-100); Mean Platelet Volume 9.7 fl (7.4-10.4); Monocytes Absolute Auto 0.7 K/mm3 (0.1-0.6); Monocytes Percent Auto 10.9 % (2.6-8.5); Neutrophils Absolute Auto 3.9 K/mm3 (1.3-6.7); Neutrophils Percent Auto 60.6 % (45.5-73.1); Platelet Count Result 186 k/mm3 (150-375); Red Blood Count 3.93 M/mm3 (4.6-6.20); Red Cell Distribution Width 13.2 % (11.5-14.5); White Blood Count 6.4 K/mm3 (4.5-10.0)
[2022-12-11 06:33] LABS: Alanine Aminotransferase 8 U/L (6-50); Alkaline Phosphatase 64 U/L (38-126); Anion Gap 7 mmol/L (8-16); Aspartate Amino Transferase 20 U/L (17-59); Bilirubin,Total 0.5 mg/dL (0.2-1.3); Blood Urea Nitrogen 40 mg/dL (9-20); Calcium 9.3 mg/dL (8.4-10.2); Carbon Dioxide 26 mmol/L (22-30); Chloride 104 mmol/L (98-107); Estimated CRCL calculation 30 ml/min; Estimated Glomerular Filt Rate 32; Glucose 108 mg/dL (65-110); Potassium 4.2 mmol/L (3.4-5.0); Sodium 137 mmol/L (137-145)
[2022-12-11] MEDS: ENOXAPARIN 40 MG/0.4 ML SYRINGE SUB-Q (08:06)
[2022-12-11] MEDS: CARBIDOPA/LEVODOPA 25/100 MG TABLET 2 TABLET PO ×2 (08:06→13:04)
[2022-12-11] MEDS: SILVERGEL (ELTA) 45 ML 1 APPLIC TOPICAL (08:06)
[2022-12-11] MEDS: FLUTICASONE/SALMETEROL 230-21 MCG INHALER 1 PUFF 2 PUFF INHALATION (08:13)
--- NOTE | 2022-12-11 09:37 | PM.DS ---
DS: Admitting Diagnosis Discharge Date 12-11 Admitting Diagnosis Bilateral lower extremity swelling DS: Discharge Diagnosis Discharge Diagnosis (1) Cellulitis: Code(s): L03.90 - Cellulitis, unspecified Status: Acute Assessment and Plan: BLE edema, warmth, and erythema wound consult,. rec's appreciated chronic venous insufficiency-elevate legs when resting WBC is normal however with pain and erythema present, started on IV Cefazolin Afebrile. Monitor VS Q 8 hours Reports bilateral lower extremity calf pain. DVT should be ruled out. Venous dopplers ordered. DVT negative (2) Lower extremity edema: Code(s): R60.0 - Localized edema Status: Acute Assessment and Plan: Suspect chronic venous stasis see above (3) Diastolic dysfunction: Code(s): I51.89 - Other ill-defined heart diseases Status: Acute Assessment and Plan: Follows with Dr Becker Seen on 11/09 and his Lasix was increased to 40 mg and added spironolactone. Per patient his Lasix dose was only 20 mg when he filled his prescription so he's been taking 20 mg daily. I reviewed his pharmacy refills and it appears that his prescription was also for 20 mg tablets daily. I'm thinking he was supposed to remain on the Lasix 40 mg daily dosing. ECHO from 09/2022 Summary ? 1. Complete two-dimensional, color flow and Doppler transthoracic echocardiogram is performed. ? 2. Left ventricular chamber dimension is normal. ? 3. Left ventricular systolic function is normal, estimated at 55-60%. ? 4. The left ventricular diastolic function is abnormal. ? 5. E/e' 10 is mildly elevated. ? 6. Left atrial chamber dimension is severely enlarged. ? 7. There is mild aortic valve sclerosis. ? 8. There is mild mitral valve regurgitation. ? 9. There is trace tricuspid valve regurgitation. ? 10. Moderate pulmonary hypertension, estimated pulmonary arterial systolic pressure is 50 mmHg. ? 11. Dilated inferior vena cava with >50% collapse upon inspiration consistent with elevated right atrial pressure, 10 mmHg. (4) Function kidney decreased: Code(s): N28.9 - Disorder of kidney and ureter, unspecified Status: Acute Assessment and Plan: Chart review does not mention CKD in his history. Cr on admission is 1.9--->2.00 today Appears his Cr 11/24 was 1.94, so it remains stable Holding diuretics Repeat BMP in the am (5) Parkinsons: Code(s): G20 - Parkinson's disease Status: Acute Assessment and Plan: Stable. Follows with [facility] neurology. continue carbidopa 25 mg levodopa 100 mg Being worked up for a brain stimulator (6) Type 2 diabetes mellitus without complication: Qualifiers: Diabetes mellitus meterman insulin use: without meterman use Qualified Code(s): E11.9 - Type 2 diabetes mellitus without complications Code(s): E11.9 - Type 2 diabetes mellitus without complications Status: Acute Assessment and Plan: Hgb A1c in clinic 06/2022 was 6.0 continue with diet and exercise. Monitor glucose on BMP. Fasting sugar this am was 102. Plan Feeding:DM diet Analgesia:Tylenol Thromboembolic prophylaxis: Lovenox Ulcer prophylaxis: na Glycemic control: na, monitor BMP glucose Bowel regimen: prn miralax Lines: PIV Antibiotics: cefazolin 1 gram Q 8 hours Disposition: Home DS: Summary Hospital Course Hospital Course: This is a 67-year-old male with past medical history of hyperlipidemia, Parkinson's, asthma, and type 2 diabetes.? He presents to the ER with complaints of bilateral lower extremity swelling with pain and warmth.? Lab work was largely unremarkable, no white count.? BUN and creatinine are elevated.? He states that he has been having bilateral lower swelling since his hernia repair over the summer.? He was referred to Dr. Becker with Cardiology who he saw in October.? At that visit he was started on spironolactone and his Lasix was increased from
== END 2022-12-11 16:00 | disposition home or self-care (01) | DRG 603 ==
LOC: ANHED 12-09 01:27 → ANH3MED 12-09 02:32
PROVIDERS: Student in an Organized Health Care Education/Training Program; Admitting Provider Internal Medicine; Emergency Provider Physician Assistant; PCP Family Medicine; Visit Provider Nurse Practitioner Acute Care
DX: L03.116 Cellulitis of left lower limb (principal); L03.115 Cellulitis of right lower limb; J45.909 Unspecified asthma, uncomplicated; E78.2 Mixed hyperlipidemia; E11.9 Type 2 diabetes mellitus without complications; G20.A1 Parkinson's disease without dyskinesia, without mention of fluctuations; R60.0 Localized edema; I51.89 Other ill-defined heart diseases; N28.9 Disorder of kidney and ureter, unspecified
CPT/HCPCS: 36415; 80048; 80053; 81003; 82948; 83735; 83880; 85025; 85055; 86140; 93970; 94640; 99212; 99285; A9270; G0463; J0690; J1650

== ENCOUNTER 2023-01-18 08:13 | Outpatient (CLI) | payer MEDICARE, SELFPAY ==
--- NOTE | ~2023-01-18 | NM_ITS ---
EXAMINATION: NM evie stress w perfusion DATE: 01/18/2023 10:59 INDICATION: Dyspnea on exertion. TECHNIQUE: Rest images were obtained following intravenous administration of 9.4 mCi Tc99m tetrofosmi n (Myoview). The patient was infused intravenously with Lexiscan (regadenoson). Then, 30.7 mCi Tc99m tetrofosmin (Myoview) was administered intravenously, and supine and prone stress images were obtaine d. Data was reconstructed into short axis and horizontal and vertical long axis SPECT images. Gated S PECT images were also obtained. COMPARISON: CT abdomen and pelvis 10/23/2010 FINDINGS: There is a small, mild, fixed perfusion defect involving left ventricular apex and apical i nferior segment, consistent with infarct. No reversible component to suggest ischemia. There is no s egmental wall motion abnormality. Left ventricular ejection fraction measures 57%. IMPRESSION: 1. 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 2. Normal left ventricular ejection fraction measuring 57%. Reviewed, dictated and finalized at location A. CTOR TALENT ACQUISITION IMPRESSION: 1. Small area of mild infarct involving left ventricular apex and apical inferi or segment. 2. Normal left ventricular ejection fraction measuring 57%.
--- NOTE | 2023-01-18 08:40 | EST_ITS ---
Patient Info Name: Tico Rondon Age: 67 years : 1955 Gender: Male Ht: 68 in Wt: 190 lbs BSA: 2.05 m2 HR: 55 bpm BP: 140 / 84 mmHg Heart Rhythm: Sinus Rhythm Exam Date: 01/18/2023 9:36 AM Exam Location: Echo Lab Patient Status: Outpatient Admit Date: 01/18/2023 Staff Ordering Physician: Siddharth Becker DO Attending Provider: Siddharth Becker DO Exercise Technologist: Mandy Menchaca CT Exercise Physician: Siddharth Becker DO Exam Type: CA stress evie w NM Study Info Indications R06.02 - Shortness of breath A regadenoson stress test was performed. Summary 1. 1. Negative lexiscan stress test for ischemic ST changes by ECG criteria. 2. 2. Stable hemodynamics throughout the test. 3. 3. Nuclear scan to follow and will be reported separately. Please correlate with it. 4. 4. Patient informed of the above results. Protocol: Lexiscan Stress ECG Details Stage: REST Duration (min): 0 min : 58 sec HR (bpm): 55 SBP (mmHg): 140 DBP (mmHg): 84 Stage: REST Duration (min): 9 min : 34 sec HR (bpm): 54 SBP (mmHg): 140 DBP (mmHg): 84 Stage: STAGE 1 Duration (min): 0 min : 59 sec HR (bpm): 67 SBP (mmHg): 133 DBP (mmHg): 80 Stage: RECOVERY Duration (min): 1 min : 0 sec HR (bpm): 74 SBP (mmHg): 133 DBP (mmHg): 80 Stage: RECOVERY Duration (min): 2 min : 0 sec HR (bpm): 72 SBP (mmHg): 133 DBP (mmHg): 80 Stage: RECOVERY Duration (min): 3 min : 0 sec HR (bpm): 73 SBP (mmHg): 126 DBP (mmHg): 75 Stage: RECOVERY Duration (min): 3 min : 6 sec HR (bpm): 73 SBP (mmHg): 126 DBP (mmHg): 75 Rest HR: 54 bpm Peak HR: 76 bpm Rest Sys BP: 140 mmHg Peak Sys BP: 133 mmHg Max Pred HR: 152 bpm % Max Pred HR: 50 % Target HR: 129 bpm Max RPP: 10,108 bpm*mmHg Termination Reason: Completed protocol Cardiac Symptoms: Shortness of breath Total Time: 1 min : 0 sec Rest Palma BP: 84 mmHg Peak Palma BP: 80 mmHg Total Dose: 0.4 mg Resting ECG Sinus bradycardia, cannot r/o septal infarct, age indeterminate, borderline ST-T wave in high lateral leads. Stress ECG No ST changes. Arrhythmias None. Report Signatures
== END 2023-01-18 08:14 | disposition home or self-care (01) ==
PROVIDERS: PCP Family Medicine; Visit Provider Internal Medicine Cardiovascular Disease
DX: R06.02 Shortness of breath (principal)
CPT/HCPCS: 78452; 93017; A9502; J2785

== ENCOUNTER 2023-03-07 10:05 | Outpatient (RCR) | payer MEDICARE, SELFPAY ==
[2023-03-07 10:26] VITALS: BMI 27.4
== END 2023-05-10 14:12 | disposition home or self-care (01) ==
LOC: ANHWOC 10:05
PROVIDERS: PCP Family Medicine; Visit Provider Family Medicine
DX: E11.9 Type 2 diabetes mellitus without complications (principal); L03.90 Cellulitis, unspecified
CPT/HCPCS: 99213; G0463

== ENCOUNTER 2023-11-10 15:34 | Emergency (ER) | payer BC, SELFPAY ==
[2023-11-10 15:40] VITALS: BP 124/68; PULSE 71; RESP 20; TEMP 37.7; O2SAT 99
--- NOTE | 2023-11-10 15:42 | ED.URI ---
HPI - URI/Sore Throat General Chief Complaint: Upper Respiratory Infection Stated Complaint: Sore Throat Time Seen by Provider: 11/10/23 15:58 Source: patient, RN notes reviewed and old records reviewed Mode of arrival: ambulatory Limitations: no limitations History of Present Illness HPI Narrative: 68-year-old male presents to the [facility] with complaints of a sore throat for 2 days. [place] hot yesterday. Unsure fever. Has been taken aspirin and Excedrin. Reports nasal drainage Treatments prior to arrival: aspirin Related Data Home Medications Medication Instructions Recorded Confirmed carbidopa 25 mg-levodopa 100 mg 2 tablet PO QID 03/05/22 11/10/23 tablet fluticasone propionate 50 1 spray intranasal QHS 07/05/22 11/10/23 mcg/actuation nasal spray,suspension (Flonase Allergy Relief) fluticasone furoate 200 1 inh inhalation HS 07/13/22 11/10/23 mcg-vilanterol 25 mcg/dose inhalation powder (Breo Ellipta) Allergies Allergy/AdvReac Type Severity Reaction Status Date / Time ibuprofen Allergy Unknown FACIAL Verified 11/10/23 15:35 Swelling Review of Systems Review of Systems: All systems reviewed & are unremarkable except as noted in HPI and below Constitutional: Constitutional: Reports no additional constitutional complaints Eyes: Eyes: Reports no additional eye complaints ENT: Reports as per HPI Cardiovascular: Cardiovascular: Reports no additional cardiovascular complaints, Denies chest pain and Denies dyspnea Respiratory: Respiratory: Reports no additional respiratory complaints, Denies chest congestion, Denies cough and Denies dyspnea Gastrointestinal: Gastrointestinal: Reports no additional gastrointestinal complaints, Denies abdominal pain, Denies nausea and Denies vomiting Musculoskeletal: Musculoskeletal: Reports no additional musculoskeletal complaints Integumentary/Breasts: Skin/Breast: Reports system reviewed and no additional complaints, except as docu Neurologic: Reports system reviewed and no additional complaints, except as documented Psychiatric: Psychiatric: Reports no additional psychiatric complaints Allergic/Immunologic: Allergic/Immunologic: Reports no additional allergic/immunologic complaints PMFSH Past Medical History Medical History Elevated PSA Mild intermittent asthma with status asthmaticus Mixed hyperlipidemia Parkinsons Screen for colon cancer Screening for prostate cancer Type 2 diabetes mellitus without complication Surgical History Surgical History H/O left inguinal hernia repair History of nasal polypectomy History of umbilical hernia repair 07/22/2022 - Robotic assisted repair umbilical hernia with mesh Family History Family History Father Cerebrovascular accident Malignant neoplasm of prostate Mother Cerebrovascular accident Heart disease Sibling Cerebrovascular accident Acute myocardial infarction Other Family history of allergic disorder Hypertension Social History Social History Smoking status: Never smoker Second hand tobacco smoke exposure: No Alcohol intake: never Substance use: never Substance use type: does not use Do You Feel Safe in your Home?: Yes Lack of Transportation: No Lack of Food: Never True Current Housing: I Have Housing Concerned About Future Housing: No Difficulty Paying Gas/Electric Bills: No Difficulty Paying for Meds: No Currently Unemployed: No Education: Bachelor's Degree Difficulty w/ Childcare or Family Care: No Living arrangements: with family Additional living arrangements comments: LIVES WITH SPOUSE (OBIE) & DAUGHTER ANN Occupation/Education: 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
[2023-11-10 16:12] LABS: EDSTREPNEGPOS1 Negative (Negative)
== END 2023-11-10 16:05 | disposition home or self-care (01) ==
PROVIDERS: Emergency Provider Nurse Practitioner; PCP Family Medicine
DX: J02.8 Acute pharyngitis due to other specified organisms (principal); J45.909 Unspecified asthma, uncomplicated; E78.2 Mixed hyperlipidemia; G20.A1 Parkinson's disease without dyskinesia, without mention of fluctuations; E11.9 Type 2 diabetes mellitus without complications
CPT/HCPCS: 87081; 87880; 99213; G0463

== ENCOUNTER 2024-08-23 12:00 | Outpatient (CLI) | payer MEDICARE, SELFPAY ==
--- OUTSIDE RECORDS SUMMARY | 2024-08-23 12:10 | XMS_ITS | Referral Summary ---
Author Organization [facility] Address [address] [place] [address] Care Team Providers Care Salesperson Recreational Vehicles Name Role Phone Dm Jose MD Primary Care Provider [phone] Encounters Date Type Department Care Team Description 08/06/2024 10:30 AM CDT Office Visit [facility] Movement Disorders [address] [facility] 7th [place] [address] Mariano Zhang MD Parkinson's disease without dyskinesia or fluctuating manifestations (HCC); Parkinson's disease (HCC) from Last 3 Months Allergies Active Allergy Reactions Criticality Noted Date Comments Ibuprofen Swelling Medium 01/01/2020 Medications Breo Ellipta 200-25 mcg/dose diskus inhaler Inhale 1 puff daily 0 Active fluticasone propionate (FLONASE) 50 mcg/actuation nasal spray Administer 1 spray into each nostril as needed Active albuterol HFA (PROVENTIL HFA,VENTOLIN HFA,PROAIR HFA) 90 mcg/actuation inhaler Inhale 2 puffs every 6 (six) hours as needed for wheezing Active famotidine (PEPCID) 40 mg tablet Take 1 tablet (40 mg total) by mouth 2 (two) times a week Active furosemide (LASIX) 20 mg tablet Take 1 tablet (20 mg total) by mouth every morning 3 Active spironolactone (ALDACTONE) 25 mg tablet Take 1 tablet (25 mg total) by mouth daily 3 Active carbidopa-levo dopa CR (SINEMET CR) 50-200 mg per CR tablet Take 1 tablet by mouth nightly 30 tablet 3 5 Active carbidopa-levo dopa (SINEMET) 25-100 mg per tabletIndicati ons:Parkinson' s disease (HCC) Take 2 tablets by mouth 5 (five) times a day. May also take 1 tablet 3 (three) times a day as needed (For worsening Parkinsonian symptoms or wearing off). 1170 tablet 3 5 Active carbidopa-levo dopa (SINEMET) 25-100 mg per tabletIndicati ons:Parkinson' s disease (HCC) Take 2 tablets by mouth 4 (four) times a day. May also take 1 tablet 3 (three) times a day as needed (For worsening Parkinsonian symptoms or wearing off). 240 tablet 5 4 025 Discontin ued(Reord er) carbidopa-levo dopa (SINEMET) 25-100 mg per tabletIndicati ons:Parkinson' s disease (HCC) Take 2 tablets by mouth 4 (four) times a day. May also take 1 tablet 3 (three) times a day as needed (For worsening Parkinsonian symptoms or wearing off). 240 tablet 5 025 Discontin ued(Reord er) Active Problems Problem Noted Date Diagnosed Date Congestive heart failure of unknown etiology Asthma 09/20/2022 Parkinson's disease 01/01/2020 Assessment & Plan (09/20/2022 12:21 PM CDT): Images from the original note were not included. Mr. Tico Rondon is a 67 y.o. old male with Payton & Yahr stage Payton & Yahr: 3 characterized by asymmetric resting tremor, action tremor, bradykinesia, rigidity, imbalance, and impaired gait. In addition he had balance, freezing of gait, facial expression, hypophonia, hypomimia, and micrographia. He first developed asymmetric resting tremor in 2018 followed over the next few years by bradykinesia, rigidity, walking, balance, freezing of gait, facial expression, hypophonia, hypomimia, difficulty arising from chairs, and micrographia. He was diagnosed with IPD in 2018 and was prescribed carbidopa/levodopa IR 25/100 with good response. In 2021, he developed motor fluctuations with wearing off that affected his ADLs and ability to work. 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 The natural history of the illness and the treatment options (including the surgical ones) were extensively discussed with the patient. At the time of this evaluation, the motor benefit from each dose of carbidopa/levodopa IR 25/100 2-3 tablets (that he took every 5 hours) lasted for only about 1-2 hours. He did not tolerate the addition of more dopaminergic therapy which caused dyskinesias that were not bothersome and characterized by head and body movements and psychosis, and was already taking rasagiline 1 mg as adjunctive therapy. He had resting tremor, action tremor, bradykinesia, rigidity, walking, balance, freezing of gait, facial expression, hypophonia, hypomimia, difficulty arising from chairs, and micrographia which affect his ADLs and quality of life in the OFF state. Increasing medications has not been tolerable secondary to dyskinesias that were not bothersome and characterized by body movements and psychosis, while decreasing any of them will worsen her already bothersome resting tremor, action tremor, bradykinesia, rigidity, walking, balance, freezing of gait, hypophonia, hypomimia, difficulty arising from chairs, and micrographia. Accordingly, he has failed medical treatment and would be a good candidate for bilateral deep brain stimulation (DBS) of the subthalamic nucleus (STN) or internal segment of the globus pallidus (GPi), especially given his predominant symptoms of resting tremor, action tremor, bradykinesia, and rigidity. Indeed, he has no major medical illness and has little cognitive deficit by history and bedside exam. He will still need a pre-operative motor evaluation on and off medication and formal neuropsychological evaluation to establish his motor response to levodopa and the absence of a significant subclinical cognitive deficit. I discussed with him for over 30 minutes (1110 to 1220) all aspects of this procedure (including its preoperative evaluation with possible neuropsychological and in-patient motor evaluation, the actual performance of the procedure, the potential benefits and complications and the post-surgical programming sessions and medication changes). I answered all their questions pertaining to the procedure. He would like to proceed with further evaluation for subthalamic nucleus (STN) DBS Surgery. We discussed the pros and cons of the [employer] and [employer] deep brain systems including battery size, battery longevity, unilateral vs. bilateral, rechargeable vs. primary cell, remote programming features, and programming features. We decided to proceed using the [employer] Infinity 7 implantable pulse generator (IPG). Mr. Tico Rondon and the DBS team preferred the chosen device due to remote programming. Mr. Tico Rondon was a good candidate for rechargeable DBS therapy due to good cognition. Recommendations: 1. Refer to Suleiman Turcios MD, PhD for bilateral subthalamic nucleus (STN) for Parkinson disease after his cardiac evalution is done. 2. Refer to Dr. Taylor for presurgical neuropsychological testing after cardiac evaluation is done. 3. Plan for outpatient levodopa ON/OFF evaluation. 4. Send subthalamic nucleus (STN) DBS packet. 5. Continue current therapy per the resident clinic. 6. Encourage exercise. 7. Refer to local chapter of the APDA for informatiion. Mariano Zhang MD Assessment & Plan (03/23/2022 3:38 PM NURSE FIRST ASSIST): The patient is a 66 year old man with history of Parkinson's disease who presents for evaluation. He has a 4-5 year history of progressive symptoms and tremor and stiffness in his upper extremities. He has had slowing and gait and softening/slurring of his speech. He has had loss of sense of smell, onset of urinary incontinence, and possible dream enactment. He has tried carbidopa-levodopa with some improvement though he has some wearing off. His examination is notable for mildly asymmetric tremor, rigidity, and bradykinesia. His gait is relatively normal with some decreased arm swing and mild instability on pull test. He had some dyskinesias present on exam. His sensation, strength, and coordination are intact. His clinical picture is consistent with idiopathic Parkinson's disease given the presence of slowly progressive tremor, rigidity, and bradykinesia. His response to carbidopa-levodopa supports this. He does not have extraocular movement abnormalities, prominent axial rigidity, or early falls making PSP unlikely. He does not have prominent autonomic symptoms making MSA unlikely. He does not have cortical signs or markedly asymmetric exam making CBS unlikely. Additionally, Parkinson's plus syndromes overall are unlikely given the patient's clinical picture now 5 years into disease as these would be expected to progress much faster. For management, we discussed with the patient that trying higher doses of carbidopa-levodopa would be an option as he may respond to higher doses, and higher doses can help extend the effect. Other considerations include adding on a medication such as rasagiline or entacapone to extend the effect or adding extended-release carbidopa-levodopa. As he has some dykinesias, he is at risk for worsening of these with increased dose of CD-LD. Could consider amantadine to treat these if he otherwise has improvement with increased CD-LD. Finally, we discussed that he may be a candidate for DBS given the relative resistance of his tremors to CD-LD. He was amenable to learning more about this by seeing Dr. Zhang or Trisha in follow up. --increase CD-LD to 2.5 tabs QID x2 weeks, then 3 tabs QID, check in in a month --follow up for DBS eval --counseled patient to continue exercise --follow up with myself or Dr. Singh in 6 months Assessment & Plan (12/24/2020 9:48 AM CDT): Patient has been using Sinemet 25/100 1.5 tablets q.i.d. but has been noticing worsening parkinsonian features confirmed on exam. I will increase his Sinemet 25/100 to 2 tablets q.i.d.. He will follow-up in neurology clinic in 6 months for reassessment on increased dosing. Assessment & Plan (01/01/2020 9:22 AM NURSE FIRST ASSIST): Patient is a former patient of [facility] with history of Parkinson's disease. He has been using Sinemet 25/100 1-1/2 tablet q.i.d.. His examination today indicates good suppression of parkinsonian features with present medication dosing. He has had no tolerability with this dosing. I have renewed his Sinemet as previously prescribed, and I plan to see him back in 1 year for neurological re-evaluation. Immunizations Immunization Administration Dates Next Due Influenza, Split 12/28/2012 Influenza, Trivalent, IM (MDV) 01/29/2012 Influenza, Trivalent, Preservative Free, Intramu scular 12/17/2015 Social History Tobacco Use Types Packs/Day Years Used Date Smoking Tobacco: Never Smokeless Tobacco: Never Tobacco Cessation:Counseling Given: Not Answered AUDIT-C Answer Date Recorded Q1: How often do you have a drink containing alc ohol? Never 06/26/2021 Average Number of Drinks Not on file 022 Q3: How often do you have si x or more drinks on one occasion? 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 file Not on file Last Filed Vital Signs Vital Sign Reading Time Taken Comments Blood Pressure 151/87 08/06/2024 10:14 AM CDT Pulse 50 08/06/2024 10:14 AM CDT Temperature 36.2 C (97.1 F) 08/06/2024 10:14 AM CDT Respiratory Rate 20 06/14/2022 3:05 PM CDT Oxygen Saturation 96% 06/14/2022 3:05 PM CDT Inhaled Oxygen Concentration - - Weight 87.4 kg (192 lb 9.6 oz) 08/06/2024 10:14 AM CDT Height 172.7 cm (5' 8) 08/06/2024 10:14 AM CDT Body Mass Index 29.28 08/06/2024 10:14 AM CDT Plan of Treatment Not on file Insurance [facility] MEDICARE [employer] MEDICARE HMO PPO Care Teams Salesperson Recreational Vehicles Relationship Specialty Start Date End Date Dm Jose MD PCP - General Family Medicine 12/20/19
--- OUTSIDE RECORDS SUMMARY | 2024-08-23 12:10 | XMS_ITS | Clinical Summary ---
Author Organization [facility] [facility] [place] Address [address] [place] [address] Care Team Providers Care Asbestos Wire Finisher Name Role Phone Dm Jose MD Primary Care Provider [phone] Allergies Active Allergy Reactions Criticality Noted Date [...] He first developed asymmetric resting tremor in 2017 followed over the next few years by [...] discussed the pros and cons of the [employer] deep brain systems including battery size, battery longevity, unilateral vs. bilateral, rechargeable vs. primary cell, remote programming features, and programming features. We decided to proceed using the [employer] Infinity 7 implantable pulse generator (IPG). Mr. [...] MD Assessment & Plan (03/23/2022 3:38 PM REGISTERED NURSE TEACHER): The patient is a 66 year old [...] dosing. Assessment & Plan (01/01/2020 9:22 AM REGISTERED NURSE TEACHER): Patient is a former patient of [facility] with history of Parkinson's disease. He has been using Sinemet 25/100 1-1/2 tablet q.i.d.. His examination today indicates good suppression of parkinsonian features with present medication dosing. He has had no tolerability with this dosing. I have renewed his Sinemet as previously prescribed, and I plan to see him back in 1 year for neurological re-evaluation. Encounters Date Type Department Care Team Description 08/06/2024 10:30 AM CDT Office Visit [facility] Movement Disorders [address] [facility] [address] [place] [address] Mariano Zhang MD Parkinson's disease without dyskinesia or fluctuating manifestations (HCC); Parkinson's disease (HCC) from Last 3 Months Immunizations Immunization Administration Dates Next Due Influenza, Split 12/28/2012 Influenza, Trivalent, IM (MDV) 01/29/2012 Influenza, Trivalent, Preservative Free, Intramu scular 12/17/2015 Surgical History Surgery Date Site/Laterality Comments HERNIA REPAIR Medical History Medical History Date Comments Heart murmur Diabetes (HCC) High cholesterol Parkinson's disease (HCC) Family History Medical History Relation Name Comments No Known Problems Brother Aneurysm Father Stroke Father Hypertrophic cardiomyopathy Mother Stroke Mother Heart attack Sister Hypertrophic cardiomyopathy Sister Stroke Sister Dementia Neg Hx Parkinsonism Neg Hx Tremor Neg Hx Relation Name Status Comments Brother Alive Father Mother Sister Social History Tobacco Use Types Packs/Day Years [...] CDT Gender Identity Male 03/22/2022 10:24 AM REGISTERED NURSE TEACHER Sexual Orientation Straight 03/22/2022 10 :24 AM REGISTERED NURSE TEACHER 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 file Not on file Obstetrics History Last Filed Vital Signs Vital Sign Reading [...] 08/06/2024 10:14 AM CDT Plan of Treatment Health Maintenance Due Date Last Done Comments Colon Cancer Screening-Colonoscopy 1954 Depression Screening 1954 Fall Risk Assessment 1954 Hepatitis C Screening 1954 Prostate Cancer Screening-PSA 1954 DTaP/Tdap/Td Vaccine (1 - Tdap) 1965 Hepatitis B Screening 1972 Pneumococcal vaccine 65+ (1 of 2 - PCV) 1973 Zoster Vaccine (1 of 2) 2004 Well Visit 65+ 09/06/2019 Influenza Vaccine (#1) 2024 6, 12/28/2012, 01/29/2012 Insurance [employer] MEDICARE HMO PPO Care Teams Asbestos Wire Finisher Relationship Specialty Start Date End Date Dm Jose MD PCP - General Family Medicine 12/20/19
[2024-08-23 12:53] LABS: Anion Gap 9 mmol/L (4-12); Blood Urea Nitrogen 27 mg/dL (9-20); Calcium 9.1 mg/dL (8.4-10.2); Carbon Dioxide 22 mmol/L (22-30); Chloride 105 mmol/L (98-107); Estimated Glomerular Filt Rate 57; Glucose 107 mg/dL (65-110); Potassium 4.1 mmol/L (3.4-5.0); Sodium 136 mmol/L (137-145)
[2024-08-23 12:55] LABS: INR 1.0; Partial Thromboplastin Time 26.0 Seconds (22.3-36.8); Prothrombin Time 13.6 Seconds (11.1-14.7)
== END 2024-08-23 12:01 | disposition home or self-care (01) ==
LOC: ANHSURGERY 12:08
PROVIDERS: Anesthesiology; PCP Family Medicine; Visit Provider Urology
DX: Z01.818 Encounter for other preprocedural examination (principal); N28.9 Disorder of kidney and ureter, unspecified; E11.9 Type 2 diabetes mellitus without complications; R97.20 Elevated prostate specific antigen [PSA]
CPT/HCPCS: 36415; 80048; 85610; 85730

== ENCOUNTER 2024-08-28 01:04 | Day surgery (SDC) | payer MEDICARE, SELFPAY ==
[2024-08-23 08:51] VITALS: BMI 28.0
--- NOTE | 2024-08-23 09:02 | PC.NURSE ---
Addendum entered by Fiona Arroyo RN 08/23/24 09:11: Pt is aware not to take any aspirin for 7 day prior as well as below, date of last dose is 08/19/24 for all supplements and Aspirin containing products. [facility]ALL Original Note: Report to the Outpatient Waiting Room, entrance under the green pavilion located off [facility], at time ___11:45am ____ on date ___08/28/24____. Planned Procedure Time: _1:45pm .? Time changes happen often and if your time is changed the preop area will call you the afternoon before. - You and your visitor will be asked to self-screen and do not enter if you have any COVID symptoms. Please call surgeon if you need to reschedule. - A mask is optional within the hospital at this time. Patients may have clear liquids (water, carbonated beverages, clear teas, apple juice) until 3 hours prior to surgery with a maximum of 20 ounces. - No food from midnight until time of surgery and no smoking, or chewing tobacco (or any form of nicotine). No chewing gum, candy or mints. (10:45am) Take only the following medications with a SIP of water on the morning of surgery: Carbidopa and Inhalers Tylenol if needed DO NOT STOP ANY OF YOUR OTHER PRESCRIPTION MEDICATIONS PRIOR TO SURGERY EXCEPT THE FOLLOWING Hold all vitamins, Caffeine pills, and supplements for [address] Hunt. Medications to discontinue per physician NONE Date to take last dose____NONE Please no make-up, nail nepali, hairspray, perfume, deodorant, or body powder the day of surgery.? No jewelry (including any body piercings) or valuables the day of surgery, leave them at home.? Please take a shower or bath the night before, or the morning of, surgery with an antibacterial soap.? Wear comfortable, loose fitting clothing.? [facility] PREOP that am per Dr Whitaker. - Jewelry must be removed prior to entering the operating room.? Rings and piercings that are not removed may be cut off. - The hospital will not accept responsibility for valuables.? - Please leave all valuables, including medications, at home the day of surgery. If you are going home after surgery, a licensed funeral driver must drive you home.? - NO public transportation without another adult if you receive anesthesia. - We recommend that an adult stay with you for 24 hours following discharge. - We also recommend that you do not drive, make important decision, drink alcoholic beverages, or take any drugs that were not prescribed by your health care provider for at least 24 hours after your discharge time. Follow any additional instructions given to you from your surgeon. Telephone instructions given to _Patient and asked if any additional questions and then verbalized understanding. Patient advised to call surgeon office or pre surgery nurse liaison [phone] if any additional questions.
--- OUTSIDE RECORDS SUMMARY | 2024-08-28 01:07 | XMS_ITS | Clinical Summary ---
Author Organization [facility] [place] Address [address] [place] [address] Care Team Providers Care Sander Portable Machine Name Role Phone Dm Jose MD Primary Care Provider [phone] Allergies Active Allergy Reactions Criticality Noted Date [...] discussed the pros and cons of the [employer] deep brain systems including battery size, battery longevity, unilateral vs. bilateral, rechargeable vs. primary cell, remote programming features, and programming features. We decided to proceed using the [employer] Infinity 7 implantable pulse generator (IPG). Mr. [...] MD Assessment & Plan (03/23/2022 3:38 PM CLINICAL MARKETING MANAGER): The patient is a 66 year old [...] dosing. Assessment & Plan (01/01/2020 9:22 AM CLINICAL MARKETING MANAGER): Patient is a former patient of [facility] with history of Parkinson's disease. He [...] Description 08/06/2024 10:30 AM CDT Office Visit [facility] Movement Disorders [address] [facility] [address] [place] [address] Mariano Zhang MD Parkinson's disease without dyskinesia [...] CDT Gender Identity Male 03/22/2022 10:24 AM CLINICAL MARKETING MANAGER Sexual Orientation Straight 03/22/2022 10 :24 AM CLINICAL MARKETING MANAGER Occupation Industry Job Start Date Job End [...] Insurance [employer] MEDICARE HMO PPO Care Teams Sander Portable Machine Relationship Specialty Start Date End Date Dm Jose MD PCP - General Family Medicine 12/20/19
--- OUTSIDE RECORDS SUMMARY | 2024-08-28 01:07 | XMS_ITS | Referral Summary ---
Author Organization [facility] [place] [facility] Address [address] [place] [address] Care Team Providers Care Fish Stringer Assembler Name Role Phone Dm Jose MD Primary Care Provider Encounters Date Type Department Care Team Description 08/06/2024 10:30 AM CDT Office Visit [facility] Movement Disorders [address] [place] [address] Mariano Zhang MD Parkinson's disease [...] to good cognition. Recommendations: 1. Refer to uSleiman Turcios MD, PhD for bilateral subthalamic nucleus [...] MD Assessment & Plan (03/23/2022 3:38 PM REGIONAL CONTROLLER): The patient is a 66 year old [...] dosing. Assessment & Plan (01/01/2020 9:22 AM REGIONAL CONTROLLER): Patient is a former patient of [facility] with history of Parkinson's disease. He [...] CDT Gender Identity Male 03/22/2022 10:24 AM REGIONAL CONTROLLER Sexual Orientation Straight 03/22/2022 10 :24 AM REGIONAL CONTROLLER Occupation Industry Job Start Date Job End [...] Plan of Treatment Not on file Insurance [facility] MEDICARE [employer] MEDICARE HMO PPO Care Teams Fish Stringer Assembler Relationship Specialty Start Date End Date Dm Jose MD PCP - General Family Medicine 12/20/19
[2024-08-28 11:50] VITALS: BMI 27.4
[2024-08-28 11:55] VITALS: BP 168/83; PULSE 61; RESP 16; TEMP 36.9; O2SAT 97
[2024-08-28] MEDS: LACTATED RINGERS 1,000 ML 30 ML IV CONT (12:20)
--- NOTE | 2024-08-28 12:30 | P.HP_ITS ---
H&P: HPI History of Present Illness Date/Time: 08/28/24 12:30 Chief Complaint: Elevated PSA Narrative: 68-year-old male with elevated PSA and abnormal MRI. [facility] Past Medical History Medical History Elevated PSA Screen for colon cancer Screening for prostate cancer Mild intermittent asthma with status asthmaticus Mixed hyperlipidemia Parkinsons Dr Mariano Zhang at [place] Type 2 diabetes mellitus without complication Surgical History Surgical History History of umbilical hernia repair 07/22/2022 - Robotic assisted repair umbilical hernia with mesh H/O left inguinal hernia repair History of nasal polypectomy Family History Family History Father Cerebrovascular accident Malignant neoplasm of prostate Mother Cerebrovascular accident Heart disease Sibling Cerebrovascular accident Acute myocardial infarction Other Family history of allergic disorder Hypertension Social History Social History Smoking status: Former smoker Second hand tobacco smoke exposure: No Alcohol intake: never Substance use: never Substance use type: does not use Do You Feel Safe in your Home?: Yes Lack of Transportation: No Lack of Food: Never True Current Housing: I Have Housing Concerned About Future Housing: No Difficulty Paying Gas/Electric Bills: No Difficulty Paying for Meds: No Currently Unemployed: No Education: Bachelor's Degree Difficulty w/ Childcare or Family Care: No Living arrangements: with family Additional living arrangements comments: Occupation/Education: 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 Gender identity (if verbalized by the patient): Male Spiritual care concerns: No Meds Home Medications and Allergies Home Medications ?Medication ?Instructions ?Recorded ?Confirmed ?Type carbidopa 25 mg-levodopa 100 mg 2 tablet PO QID 03/05/22 08/28/24 History tablet spironolactone 25 mg tablet 25 mg PO DAILY #90 tabs 09/12/23 08/28/24 Rx albuterol sulfate 90 mcg/actuation 2 puff inhalation Q4-6H PRN 04/09/24 08/23/24 Rx aerosol inhaler shortness of breath or wheezing #6.7 grams fluticasone furoate 200 1 inh inhalation HS #180 ea 04/09/24 08/28/24 Rx mcg-vilanterol 25 mcg/dose inhalation powder (Breo Ellipta) fluticasone propionate 50 1 spray intranasal QHS PRN nasal 04/09/24 08/28/24 History mcg/actuation nasal congestion spray,suspension (Flonase Allergy Relief) furosemide 20 mg tablet See Rx Instructions .Route 08/13/24 08/28/24 Rx .COMPLEX #30 tabs carbidopa ER 50 mg-levodopa 200 mg 1 tablet PO DAILY 08/21/24 08/23/24 History tablet,extended release caffeine 200 mg tablet (Stay Awake) 200 mg PO DAILY 08/23/24 08/23/24 History Allergies Allergy/AdvReac Type Severity Reaction Status Date / Time ibuprofen Allergy Unknown FACIAL Verified 08/28/24 12:28 Swelling Exam Const: General: cooperative and comfortable Resp: Effort & Inspection: normal respiratory effort Cardio: Rate: regular rate Rhythm: regular rhythm Assessment and Plan Assessment and plan (1) Elevated PSA: Code(s): R97.20 - Elevated prostate specific antigen [PSA] Status: Acute Assessment and Plan: Proceed with your uronav us and prostate biopsy Plan Proceed with uronav us and prostate biopsy
--- NOTE | 2024-08-28 12:33 | WPDHPUPDATE1 ---
History and Physical Update Update Date/Time: 08/28/24 12:33 History and Physical has been reviewed, including an updated exam of the patient. There are NO changes in the patient's condition. Risks, benefits, and alternatives have been discussed and questions answered. Patient agrees to proceed with procedure.
--- NOTE | 2024-08-28 12:50 | P.PNAN_ITS ---
Anes - Initial Pre Proc Eval Procedure: Operation Date: 08/28/24 13:45 Proposed Procedures p Trans Rectal Ultrasound Fusion Guided Prostate Biopsy - Juan Luis Hunt MD Date/Time: 08/28/24 12:50 Surgeon: Juan Luis Hunt MD Pre Op Diagnosis: Elev PSA Patient Data Age: 68 Gender: M Height: 1.73 m Weight: 81.8 kg Last Vital Signs Temp 36.9 C 08/28/24 11:55 Pulse 61 08/28/24 11:55 Resp 16 08/28/24 11:55 BP 168/83 H 08/28/24 11:55 Pulse Ox 97 08/28/24 11:55 O2 Del Method Room Air 08/28/24 11:55 Allergies Allergy/AdvReac Type Severity Reaction Status Date / Time ibuprofen Allergy Unknown FACIAL Verified 08/28/24 12:28 Swelling Home Medications ?Medication ?Instructions ?Recorded ?Confirmed ?Type carbidopa 25 mg-levodopa 100 mg 2 tablet PO QID 03/05/22 08/28/24 History tablet spironolactone 25 mg tablet 25 mg PO DAILY #90 tabs 09/12/23 08/28/24 Rx albuterol sulfate 90 mcg/actuation 2 puff inhalation Q4-6H PRN 04/09/24 08/23/24 Rx aerosol inhaler shortness of breath or wheezing #6.7 grams fluticasone furoate 200 1 inh inhalation HS #180 ea 04/09/24 08/28/24 Rx mcg-vilanterol 25 mcg/dose inhalation powder (Breo Ellipta) fluticasone propionate 50 1 spray intranasal QHS PRN nasal 04/09/24 08/28/24 History mcg/actuation nasal congestion spray,suspension (Flonase Allergy Relief) furosemide 20 mg tablet See Rx Instructions .Route 08/13/24 08/28/24 Rx .COMPLEX #30 tabs carbidopa ER 50 mg-levodopa 200 mg 1 tablet PO DAILY 08/21/24 08/23/24 History tablet,extended release caffeine 200 mg tablet (Stay Awake) 200 mg PO DAILY 08/23/24 08/23/24 History Patient hx anesthesia problems: none Family hx anesthesia problems: none Results Review: All pre-operative results and documents have been reviewed as part of the pre- operative evaluation. PMFSH Past Medical History Medical History Elevated PSA Screen for colon cancer Screening for prostate cancer Mild intermittent asthma with status asthmaticus Mixed hyperlipidemia Parkinsons Dr Mariano Zhang at [place] Type 2 diabetes mellitus without complication Surgical History Surgical History History of umbilical hernia repair 07/22/2022 - Robotic assisted repair umbilical hernia with mesh H/O left inguinal hernia repair History of nasal polypectomy Family History Family History Father Cerebrovascular accident Malignant neoplasm of prostate Mother Cerebrovascular accident Heart disease Sibling Cerebrovascular accident Acute myocardial infarction Other Family history of allergic disorder Hypertension Social History Social History Smoking status: Former smoker Second hand tobacco smoke exposure: No Alcohol intake: never Substance use: never Substance use type: does not use Do You Feel Safe in your Home?: Yes Lack of Transportation: No Lack of Food: Never True Current Housing: I Have Housing Concerned About Future Housing: No Difficulty Paying Gas/Electric Bills: No Difficulty Paying for Meds: No Currently Unemployed: No Education: Bachelor's Degree Difficulty w/ Childcare or Family Care: No Living arrangements: with family Additional living arrangements comments: 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 Informed Consent: The patient's anesthetic plan and its attendant risks and benefits were discussed with the patient/family/POA. Questions were solicited and answers provided to the satisfaction of the patient/family/POA.
--- NOTE | 2024-08-28 13:10 | S_PTH ---
PATIENT: Tico Rondon LOC: [facility] U#:[id number] AGE/SX: 68/M ROOM: RE08/28/[address]: Juan Luis Hunt, : 1955 BED: DIS: 08/28/2024 SPEC #: [id number] RECD: 08/28/24 14:07 STATUS: NADIYA DOUG #: [id number] RAJI: 08/28/24 13:[address]: Gilbert,Juan Luis Aguilar DEPT: [facility] Surgical RECD BY: Annabella Meza ENTERED: 08/28/24 14:10 SP TYPE: Surgical OTHR DR: Dm Jose MD Tissues: A - Prostate Bx B - Prostate Bx C - Prostate Bx D - Prostate Bx E - Prostate Bx F - Prostate Bx G - Prostate Bx H - Prostate Bx I - Prostate Bx J - Prostate Bx K - Prostate Bx L - Prostate Bx M - Prostate Bx Procedures: Unstained Slides Hematoxylin and Eosin Stain Prostate Biopsy
[2024-08-28] MEDS: ceFAZolin 2 GM/D5W 50 ML 2 GM/50 ML BAG IVPB (13:37)
--- NOTE | 2024-08-28 13:55 | W.PM.PROC2 ---
Procedure Note - Detailed Date of Procedure 08/28/24 Pre-op Diagnosis Elev PSA Post-op Diagnosis Same Procedure Performed [facility] us and prostate biopsy Surgeon Juan Luis Hunt MD Anesthesia General Description of Procedure Patient was taken to the operative suite correctly identified. Once anesthesia was obtained he was placed in the lateral decubitus position. Transrectal ultrasound probe was placed in the MRI image was matched to the ultrasound. Three cores from the region of interest were taken. Twelve standard cores were then also taken. He tolerated procedure well without any complications and was taken recovery stable condition. He will call for path results in 1 week. Estimated Blood Loss 0 Drains No Packing No Pathology Yes Complications No immediate complications Condition Stable Disposition PACU
--- NOTE | 2024-08-28 13:57 | W.PM.PROC2 ---
Procedure Note - Detailed Date of Procedure 08/28/24 Pre-op Diagnosis Elev PSA Post-op Diagnosis Same Procedure Performed [facility] us and prostate biopsy Surgeon Juan Luis Hunt MD Anesthesia General Description of Procedure Patient was taken the operative suite correctly identified. Once anesthesia was obtained was placed in lateral decubitus position. The MRI image was fused to the ultrasound image. Three cores were taken from the region of interest. Twelve standard cores were also taken. Patient was taken recovery stable condition. He will call for path results in 1 week Estimated Blood Loss 0 Drains No Packing No Pathology Yes Complications No immediate complications Condition Stable Disposition PACU
[2024-08-28 13:59] VITALS: BP 109/57; PULSE 52; RESP 14; O2SAT 96
[2024-08-28 14:25] VITALS: BP 127/65; PULSE 51; RESP 18; O2SAT 97
[2024-08-28 14:55] VITALS: BP 149/69; PULSE 62; RESP 20
[2024-08-28 15:25] VITALS: BP 151/80; PULSE 59; RESP 20
== END 2024-08-28 15:33 | disposition home or self-care (01) ==
PROVIDERS: PCP Family Medicine; Visit Provider Urology
PROC: (CPT 55700; principal; 2024-08-28 13:45)
DX: N42.89 Other specified disorders of prostate (principal); R97.20 Elevated prostate specific antigen [PSA]; J45.909 Unspecified asthma, uncomplicated; E78.2 Mixed hyperlipidemia; E11.9 Type 2 diabetes mellitus without complications; G20.A1 Parkinson's disease without dyskinesia, without mention of fluctuations; Z79.51 Long term (current) use of inhaled steroids; Z98.890 Other specified postprocedural states; Z87.891 Personal history of nicotine dependence; Z80.42 Family history of malignant neoplasm of prostate; Z82.49 Family history of ischemic heart disease and other diseases of the circulatory system
CPT/HCPCS: 76872; 55700; G0416; J0690; J2003; J2250; J2704; J3010; J7120

== ENCOUNTER 2024-09-15 13:18 | Emergency (ER) | payer MEDICARE, SELFPAY ==
--- NOTE | ~2024-09-15 | XR_ITS ---
HISTORY: posterior lower right-sided rib pain post fall COMPARISON: None TECHNIQUE: 3 views of the right-sided ribs were performed along with a PA examination of the chest FINDINGS: The cardiac mediastinal silhouette is unremarkable. The lungs are clear. No acute displaced right-sided rib fracture is appreciated. Bone mineralization is age-appropriate. IMPRESSION: No acute displaced right-sided rib fracture. The lungs are clear. Reviewed, dictated and finalized at location A.
--- NOTE | 2024-09-15 13:20 | ED_ITS ---
HPI - Fall General Chief Complaint: Fall Stated Complaint: FALL Time Seen by Provider: 09/15/24 13:28 Source: patient, RN notes reviewed and old records reviewed Mode of arrival: ambulatory Limitations: no limitations History of Present Illness HPI Narrative: 69-year-old male presents to the [facility] with complaints of right mid back pain since yesterday. States that he was on his riding lawnmower mowing his grass when he got off he fell. Has taken Excedrin. Patient states that occurred yesterday. Denies hitting head. Has a history of Parkinson's Onset (ago): day(s) (1) Related Data Home Medications ?Medication ?Instructions ?Recorded ?Confirmed ?Last Taken ?Type carbidopa 25 mg-levodopa 100 mg 2 tablet PO QID 03/05/22 08/28/24 08/28/24 History tablet fluticasone propionate 50 1 spray intranasal QHS PRN nasal 04/09/24 08/28/24 08/27/24 History mcg/actuation nasal congestion spray,suspension (Flonase Allergy Relief) carbidopa ER 50 mg-levodopa 200 mg 1 tablet PO DAILY 08/21/24 08/23/24 Unknown History tablet,extended release caffeine 200 mg tablet (Stay Awake) 200 mg PO DAILY 08/23/24 08/23/24 Unknown History Allergies Allergy/AdvReac Type Severity Reaction Status Date / Time ibuprofen Allergy Unknown FACIAL Verified 09/15/24 13:20 Swelling Review of Systems 2 Review of Systems: All systems reviewed & are unremarkable except as noted in HPI and below Constitutional: Constitutional: Reports no additional constitutional complaints ENT: Reports system reviewed and no additional complaints, except as documented Cardiovascular: Cardiovascular: Reports no additional cardiovascular complaints, Denies chest pain and Denies dyspnea Respiratory: Respiratory: Reports no additional respiratory complaints, Denies chest congestion, Denies cough and Denies dyspnea Musculoskeletal: Musculoskeletal: Reports as per HPI Integumentary/Breasts: Skin/Breast: Reports system reviewed and no additional complaints, except as docu PMFSH Past Medical History Medical History Elevated PSA Screen for colon cancer Screening for prostate cancer Mild intermittent asthma with status asthmaticus Mixed hyperlipidemia Parkinsons Dr Mariano Zhang at [place] Type 2 diabetes mellitus without complication Surgical History Surgical History History of umbilical hernia repair 07/22/2022 - Robotic assisted repair umbilical hernia with mesh H/O left inguinal hernia repair History of nasal polypectomy Family History Family History Father Cerebrovascular accident Malignant neoplasm of prostate Mother Cerebrovascular accident Heart disease Sibling Cerebrovascular accident Acute myocardial infarction Other Family history of allergic disorder Hypertension Social History Social History Smoking status: Former smoker Second hand tobacco smoke exposure: No Alcohol intake: never Substance use: never Substance use type: does not use Do You Feel Safe in your Home?: Yes Lack of Transportation: No Lack of Food: Never True Current Housing: I Have Housing Concerned About Future Housing: No Difficulty Paying Gas/Electric Bills: No Difficulty Paying for Meds: No Currently Unemployed: No Education: Bachelor's Degree Difficulty w/ Childcare or Family Care: No Living arrangements: with family Additional living arrangements comments: 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 There is no relevant family history pertinent to the patient complaint. Exam 2 Const: General: cooperative, no acute distress, well developed, alert, ill appearing chronically, uncomfortable and well nourished Nutritional Appearance: well nourished Orientation/consciousness: patient oriented x3 Limitations: no limitations HENMT: Head: normal to inspection Ears: hearing grossly normal bilaterally, external ears normal, TM's normal bilaterally, EAC's normal, mastoids normal and no periauricular adenopathy Mouth: Yes Normal oral and palatal mucosa present, Yes lip normal, Yes tongue normal and Yes moist mucous membranes Eyes: General: appearance normal, both eyes and all related structures A lignment and Position: alignment normal Neck: Neck: normal visual inspection, full ROM, no lymphadenopathy and no meningeal signs Chest: Chest palpation & inspection: normal inspection of the chest Resp: Effort & Inspection: normal respiratory effort and able to speak in complete sentences Auscultation: clear to auscultation bilaterally, no crackles, no rales, no rhonchi and no wheezes Cardio: Rate: regular rate Back/Spine/Pelvis: Thoracic/Lumbar Spine: No thoracic spinal tenderness and No lumbar spinal tenderness Pelvis: no pain with anterior-posterior compression and no pain with lateral compression Back/spine/pelvis image: 1. Tenderness to palpation. No ecchymosis or erythema. No rashes. No midline tenderness Skin: General skin exam: normal color and no rashes or lesions noted Neuro: General: patient oriented x3, gait normal, moves all extremities and no meningeal signs Cognition (Neuro): normal cognition Speech: normal speech Gait exam (Neuro): Normal gait present Extrem: General: normal to inspection, full ROM, capillary refill normal and normal gait Psych: Appearance: grossly normal and well kempt Mental Status: mental status grossly normal Speech and movement: Normal speech and movement present and Clear speech present Affect: normal affect Attitude: cooperative Course Course Level of Care: Express Care Visit Vital Signs Vital signs: Vital Signs Temperature 99.2 F 09/15/24 13:28 Pulse Rate 57 L 09/15/24 13:28 Respiratory Rate 20 09/15/24 13:28 Blood Pressure 133/71 09/15/24 13:28 Pulse Oximetry 97 09/15/24 13:28 Oxygen Delivery Room Air 09/15/24 13:28 Temperature 99.2 F 09/15/24 13:28 Pulse Rate 57 L 09/15/24 13:28 Respiratory Rate 20 09/15/24 13:28 Blood Pressure 133/71 09/15/24 13:28 Pulse Oximetry 97 09/15/24 13:28 Oxygen Delivery Room Air 09/15/24 13:28 Reviewed MDM - Fall MDM Narrative Medical decision making narrative: Patient sitting in exam room. Patient is nontoxic, vitals stable. Patient presents with right lower posterior rib pain post fall yesterday. X-ray negative Patient denies any other acute findings. No acute findings noted on exam Patient appropriate for outpatient treatment with close follow Discharge instructions reviewed with patient, as well as provided in writing per nursing staff. The instructions also include specific and strict return/GO TO THE ER as well as f/u information. All questions have been answered, and the patient deny any further questions with discharge and discharge plan. Some parts of this dictation were generated by voice recognition software and may contain typographical and/or grammatical inaccuracies. Differential Diagnosis Differential diagnosis: Likely other (Contusion, fracture, sprain, muscle strain) Imaging Data Radiologist's impression: HISTORY: posterior lower right-sided rib pain post fall COMPARISON: None TECHNIQUE: 3 views of the right-sided ribs were performed along with a PA examination of the chest FINDINGS: The cardiac mediastinal silhouette is unremarkable. The lungs are clear. No acute displaced right-sided rib fracture is appreciated. Bone mineralization is age-appropriate. IMPRESSION: No acute displaced right-sided rib fracture. The lungs are clear. Critical Care Time Critical Care Time Critical Care Time: No Discharge Plan Discharge Clinical Impression: Acute right-sided back pain Qualifiers: Back pain location: thoracic back pain Qualified Code(s): M54.6 - Pain in thoracic spine Patient Disposition: Home Condition: Stable Instructions: Back Pain (ED) Additional Instructions: Take Tylenol per package instructions to help with pain. Take Baclofen (muscle relaxer) as directed. Do not drink, drive, operate machinery, or do anything dangerous while taking this medication Exercise:Combine aerobic exercise, like walking or swimming, with specific exercises to keep the muscles in your back and abdomen strong and flexible. Proper Lifting:Be sure to lift heavy items with your legs, not your back. Do not bend over to pick something up. Keep your back straight and bend at your knees. Weight:Maintain a healthy weight. Being overweight puts added stress on your lower back. Avoid Smoking:Both the smoke and the nicotine cause your spine to age faster than normal. Proper Posture:Good posture is important for avoiding future problems. A therapist can teach you how to safely stand, sit, and lift. Use warm moist heat to help with pain. Using topical such as Biofreeze, Rob-Mccauley or Aspercreme can also help Follow up with Primary provider in 2-3 days, This may become a chronic condition and they will be the one to help manage your pain and order additional testing. Go to the nearest ER if you develop problems with bladder/bowel function, weakness or loss of feeling in one or both of your legs. Patient Language: Emirati Prescriptions: New baclofen 10 mg tablet See Rx Instructions .Route .COMPLEX PRN (Reason: muscle pain) Qty: 7 0RF Rx Instructions: 0.5-1 tab bid prn pain lidocaine [Lidoderm] 5 % adhesive patch,medicated 1 patch topical DAILY Qty: 15 0RF Rx Instructions: leave on most painful area for up to 12 hrs No Action fluticasone propionate [Flonase Allergy Relief] 50 mcg/actuation spray,suspension 1 spray intranasal QHS PRN (Reason: nasal congestion) Rx Instructions: administer into each nostril albuterol sulfate 90 mcg/actuation HFA aerosol inhaler 2 puff INHALATION Q4-6H PRN (Reason: shortness of breath or wheezing) Qty: 6.7 3RF fluticasone furoate-vilanterol [Breo Ellipta] 200-25 mcg/dose blister with device 1 inh INHALATION HS Qty: 180 3RF Rx Instructions: 1 inh inhalation every 24 hours; carbidopa-levodopa 50-200 mg tablet extended release 1 tablet PO DAILY carbidopa-levodopa 25-100 mg tablet 2 tablet PO QID caffeine [Stay Awake] 200 mg tablet 200 mg PO DAILY spironolactone 25 mg tablet 25 mg PO DAILY Qty: 90 2RF furosemide 20 mg tablet See Rx Instructions .ROUTE .COMPLEX Qty: 30 5RF Dose Instruction: TAKE 1 TABLET BY MOUTH IN THE MORNING Rx Instructions: TAKE 1 TABLET BY MOUTH IN THE MORNING Follow-up/Referrals: Dm Jose MD [Primary Care Provider] - 1 Week ([facility]) Time of Disposition: 14:43
[2024-09-15 13:28] VITALS: BP 133/71; PULSE 57; RESP 20; TEMP 37.3; O2SAT 97
== END 2024-09-15 14:50 | disposition home or self-care (01) ==
PROVIDERS: Emergency Provider Nurse Practitioner; PCP Family Medicine
DX: M54.6 Pain in thoracic spine (principal); Z87.891 Personal history of nicotine dependence; J45.909 Unspecified asthma, uncomplicated; G20.A1 Parkinson's disease without dyskinesia, without mention of fluctuations; E11.9 Type 2 diabetes mellitus without complications; E78.2 Mixed hyperlipidemia
CPT/HCPCS: 71101; 99213; G0463